=== PATIENT | male | born 1950 | race Caucasian/White ===

== ENCOUNTER 2019-01-07 22:10 | Emergency (ER) | payer MEDICARE, OTHER ==
[2019-01-07 22:40] LABS: BASOPHILS # (AUTO) 0.1 10^3/uL (0.0-0.1); BASOPHILS % (AUTO) 0.5 %; HGB - HEMOGLOBIN 16.5 g/dL (14.0-18.0); LYMPHOCYTES # (AUTO) 1.4 10^3/uL (1.5-3.5); LYMPHOCYTES % (AUTO) 9.1 %; MEAN CORPUSCULAR HGB CONC 33.6 g/dL (32.0-36.0); MEAN CORPUSCULAR VOLUME 86.5 fL (80.0-94.0); MEAN PLATELET VOLUME 9.3 fL (7.4-11.4); MONOCYTES # (AUTO) 1.1 10^3/uL (0.0-1.0); MONOCYTES % (AUTO) 6.9 %; NEUTROPHILS % (AUTO) 83.5 %; PLT - PLATELET COUNT 293 10^3/uL (130-450); RED BLOOD COUNT 5.69 10^6/uL (4.70-6.10); RED CELL DISTRIBUTION WIDTH 13.5 % (12.0-15.0); WHITE BLOOD COUNT 15.6 x10^3/uL (4.8-10.8)
[2019-01-07 22:52] LABS: ALBUMIN/GLOBULIN RATIO 1.5 (1.0-2.2); BILIRUBIN,TOTAL 2.2 mg/dL (0.2-1.0); CALCIUM 10.1 mg/dL (8.5-10.3); TOTAL PROTEIN 8.3 g/dL (6.7-8.2)
--- NOTE | 2019-01-07 23:38 | ED Physician Documentation ---
PD HPI ABD PAIN - Stated complaint Stated Complaint: CONSTIPATION, MALE - Chief complaint Chief Complaint: Abd Pain - History obtained from History obtained from: Patient, Family - History of Present Illness Timing - onset: Today, Yesterday Timing - duration: Days (2) Timing - details: Gradual onset Quality: Sharp, Stabbing, Throbbing, Other (Spasms) Location: All over / everywhere, Suprapubic Radiation: No: Chest Associated symptoms: Constipation. 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 He is here with his daughter with complaints that he cannot urinate. Since yesterday he is only been getting small dribbles of urine and he feels desperately like he needs to urinate. He also cannot have a bowel movement. He denies any history of prostate disease although his brother of prostate cancer. Patient has had no fever, he does not feel short of breath has had no peripheral edema. No history of kidney disease or diabetes. He has not been unable to look at the urine to see if there is blood. Review of Systems Constitutional: denies: Fever Throat: denies: Sore throat Respiratory: denies: Dyspnea GI: reports: Constipation : reports: Unable to Void PD PAST MEDICAL HISTORY - Allergies Allergies/Adverse Reactions: Allergies Allergy/AdvReac Type Severity Reaction Status Date / Time No Known Drug Allergies Allergy Verified 01/07/19 22:22 PD ED PE NORMAL - Vitals Vital signs reviewed: Yes (Patient is blind.) - General General: Alert and oriented X 3, No acute distress, Well developed/nourished - HEENT HEENT: Atraumatic, Moist mucous membranes - Cardiac Cardiac: RRR, No murmur - Respiratory Respiratory: No respiratory distress, Clear bilaterally - Abdomen Abdomen: Normal bowel sounds, Other (The abdomen is tender and tense fullness felt in the suprapubic region consistent with an enlarged bladder.) - Neuro Neuro: Alert and oriented X 3, No motor deficit, No sensory deficit, Normal speech - Psych Psych: Normal mood, Normal affect Results - Vitals Vitals: Vital Signs - 24 hr 01/07/19 01/08/19 01/08/19 22:15 00:22 02:03 Temperature 36.7 C Heart Rate 130 H 110 H 99 Respiratory 17 18 17 Rate Blood Pressure 196/97 H 152/80 H 155/87 H O2 Saturation 96 93 94 Oxygen O2 Source Room air - Labs Labs: Laboratory Tests 01/07/19 01/07/19 01/08/19 22:35 22:35 00:30 WBC 15.6 H RBC 5.69 Hgb 16.5 Hct 49.2 MCV 86.5 MCH 29.0 MCHC 33.6 RDW 13.5 Plt Count 293 MPV 9.3 Neut # (Auto) 13.0 H Lymph # (Auto) 1.4 L [place] # (Auto) 1.1 H Eos # (Auto) 0.0 Baso # (Auto) 0.1 Absolute Nucleated RBC 0.01 Nucleated RBC % 0.1 Sodium 140 Potassium 4.0 Chloride 103 Carbon Dioxide 22 Anion Gap 15.0 H BUN 16 Creatinine 1.0 Estimated GFR (MDRD) 74 L Glucose 140 H Calcium 10.1 Total Bilirubin 2.2 H AST 29 ALT 44 Alkaline Phosphatase 49 Total Protein 8.3 H Albumin 5.0 Globulin 3.3 Albumin/Globulin Ratio 1.5 Lipase 28 Urine Color YELLOW Urine Clarity CLEAR Urine pH 6.0 Ur Specific [place] 1.015 Urine Protein 100 H Urine Glucose (UA) NEGATIVE Urine Ketones NEGATIVE Urine Occult Blood LARGE H Urine Nitrite NEGATIVE Urine Bilirubin NEGATIVE Urine Urobilinogen 0.2 (NORMAL) Ur Leukocyte Esterase NEGATIVE Urine RBC TNTC H Urine WBC 0-3 Ur Squamous Epith Cells NONE SEEN Urine Bacteria None Seen Urine Mucus Few Strands Ur Microscopic Review INDICATED Urine Culture Comments NOT INDICATED PD MEDICAL DECISION MAKING - ED course Complexity details: re-evaluated patient, d/w patient, d/w family ED course: The patient had a Steele catheter placed the urine was initially clear and then a little bit bloody. Minimal white blood cells on microscopic. His kidney function is good normal CBC.Discussed with the family and they feel like they will be able to manage a Steele leg bag at home so he is discharged with a Steele leg bag with instructions to keep it empty and follow-up with his primary care provider about removal or referral to urology. Departure - Departure Disposition: 01 Home, Self Care Clinical Impression: Acute urinary retention Condition: Good Instructions: ED Catheter Care Steele Follow-Up: [facility] [Provider Group] Comments: Keep the leg bag emptied. If you start passing clots and then are not able to urinate you should be immediately if your primary care provider tomorrow about follow-up either with them at the clinic or whether they want you to have a referral for urologist. Discharge Date/Time: 01/08/19 02:13
[2019-01-08 00:38] LABS: BILIRUBIN,URINE NEGATIVE (NEGATIVE); CLARITY,URINE CLEAR (CLEAR); GLUCOSE, URINE (UA) NEGATIVE (NEGATIVE); KETONES,URINE (UA) NEGATIVE (NEGATIVE); LEUKOCYTE ESTERASE, URINE NEGATIVE (NEGATIVE); NITRITE,URINE NEGATIVE (NEGATIVE); OCCULT BLOOD,URINE LARGE (NEGATIVE); PROTEIN,URINE 100 mg/dL (NEGATIVE); UROBILINOGEN,URINE 0.2 (NORMAL) E.U./dL (NORMAL)
[2019-01-08 00:50] LABS: BACTERIA,URINE None Seen /HPF (None Seen); MUCUS,URINE Few Strands; RBC,URINE TNTC /HPF (0-5); SQUAMOUS EPITHELIAL CELL,UR NONE SEEN (<= Few)
[2019-01-08 02:04] VITALS: BP 155/87
== END 2019-01-08 02:13 | disposition home or self-care (01) ==
LOC: ED 22:10
DX: R33.9 Retention of urine, unspecified (principal); R31.0 Gross hematuria; H46.9 Unspecified optic neuritis; H54.7 Unspecified visual loss; Z80.42 Family history of malignant neoplasm of prostate
CPT/HCPCS: 36415; 51703; 51798; 80053; 81001; 81003; 83690; 85025; 87086; 99283

== ENCOUNTER 2019-01-17 17:35 | Inpatient (IN) | payer MEDICARE, OTHER ==
[2019-01-17] MEDS ORDERED: CEFEPIME 2 GM in SODIUM CHLORIDE 0.9% MINIBAG 100 ML IV STA (18:01)
[2019-01-17] MEDS ORDERED: LACTATED RINGERS IV STA (18:01)
[2019-01-17] MEDS ORDERED: ACETAMINOPHEN 325 MG TABLET PO STA (18:04)
--- NOTE | 2019-01-17 18:04 | ED Physician Documentation ---
History of Present Illness - Stated complaint Stated Complaint: UNABLE TO URINATE/CATH/FEVER - Chief complaint Chief Complaint: Fever - History obtained from History obtained from: Patient, Family (daughter) - History of Present Illness Timing: Today (68-year-old gentleman with history of blindness but otherwise pretty healthy. Had been having problems with hematuria lately and has had 2 catheters. On the second 1 he had a cystoscopy, per the daughter he had some friable blood vessels in the prostate that were cauterized and something was biopsied on the back of the bladder. During that he aspirated and ended up being intubated. This was 5 days ago and had a bronchoscopy. He was released from the hospital 2 days ago. Today around noon he is felt unusually cold and started having chills and a fever to 103 at home. He has a mild cough which is not worsening. He has some catheter pain but no bladder or flank pain. No abdominal pain.) Review of Systems Ten Systems: 10 systems reviewed and negative Constitutional: reports: Fever, Chills, Myalgias, Fatigue Cardiac: denies: Chest pain / pressure, Palpitations Respiratory: reports: Dyspnea, Cough GI: reports: Diarrhea (4 days ago, gone, now normal). denies: Abdominal Pain, Nausea, Vomiting PD PAST MEDICAL HISTORY - Past Medical History Past Medical History: Yes Other Past Medical History: blindness - Past Surgical History Past Surgical History: No - Allergies Allergies/Adverse Reactions: Allergies Allergy/AdvReac Type Severity Reaction Status Date / Time No Known Drug Allergies Allergy Verified 01/17/19 17:44 - Social History Does the pt smoke?: No Smoking Status: Never smoker Does the pt drink ETOH?: Yes Does the pt have substance abuse?: No - Family History Family history: reports: Non contributory - Immunizations Immunizations are current?: No Immunizations: TDAP >10years/unknown - POLST Patient has POLST: No PD ED PE NORMAL - Vitals Vital signs reviewed: Yes - General General: Alert and oriented X 3, No acute distress - HEENT HEENT: Other (R gaze, dilated pupils) - Neck Neck: Supple, no meningeal sign, No bony TTP - Cardiac Cardiac: Other (tachycardic, no mmr) - Respiratory Respiratory: No respiratory distress, Other (diminshed R base) - Abdomen Abdomen: Soft, Non tender - Male Male : Other (Leg bag with slightly orangey tinted urine but not opaque) - Derm Derm: Normal color, Warm and dry, No rash - Extremities Extremities: No edema, No calf tenderness / cord - Neuro Neuro: Alert and oriented X 3, Normal speech Results - Vitals Vitals: Vital Signs - 24 hr 01/17/19 01/17/19 01/17/19 17:40 18:35 19:00 Temperature 39.3 C H 37.9 C H Heart Rate 125 H 109 H 105 H Respiratory 18 28 H 31 H Rate Blood Pressure 142/60 H 141/73 H 147/69 H O2 Saturation 95 93 94 01/17/19 01/17/19 01/17/19 19:24 19:41 19:56 Temperature 37.2 C 37.2 C Heart Rate 99 Respiratory 40 H Rate Blood Pressure 148/74 H O2 Saturation 95 Oxygen O2 Source Room air - EKG (time done) 194 Rate: Rate (enter#) (105) Rhythm: Sinus tachycardia [place]: Normal Intervals: RBBB QRS: Normal Ischemia: Non specific changes Computer interpretation: Agree with computer - Labs Labs: Laboratory Tests 01/17/19 01/17/19 01/17/19 18:02 18:02 18:02 WBC 13.0 H RBC 4.36 L Hgb 12.8 L Hct 38.8 L MCV 89.0 MCH 29.4 MCHC 33.0 RDW 12.8 Plt Count 230 MPV 11.2 Neut # (Auto) 11.4 H Lymph # (Auto) 0.5 L [place] # (Auto) 1.0 Eos # (Auto) 0.0 Baso # (Auto) 0.0 Absolute Nucleated RBC 0.00 Nucleated RBC % 0.0 Sodium 135 Potassium 3.5 Chloride 101 Carbon Dioxide 23 Anion Gap 11.0 BUN 15 Creatinine 0.9 Estimated GFR (MDRD) 84 L Glucose 126 H Lactic Acid 1.4 Calcium 9.1 Total Bilirubin 1.7 H AST 24 ALT 30 Alkaline Phosphatase 43 Total Protein 7.4 Albumin 4.0 Globulin 3.4 Albumin/Globulin Ratio 1.2 Lipase 27 Urine Color Urine Clarity Urine pH Ur Specific [place] Urine Protein Urine Glucose (UA) Urine Ketones Urine Occult Blood Urine Nitrite Urine Bilirubin Urine Urobilinogen Ur Leukocyte Esterase Urine RBC Urine WBC Ur Squamous Epith Cells Urine Bacteria Ur Microscopic Review Urine Culture Comments 06/22/19 18:40 WBC RBC Hgb Hct MCV MCH MCHC RDW Plt Count MPV Neut # (Auto) Lymph # (Auto) [place] # (Auto) Eos # (Auto) Baso # (Auto) Absolute Nucleated RBC Nucleated RBC % Sodium Potassium Chloride Carbon Dioxide Anion Gap BUN Creatinine Estimated GFR (MDRD) Glucose Lactic Acid Calcium Total Bilirubin AST ALT Alkaline Phosphatase Total Protein Albumin Globulin Albumin/Globulin Ratio Lipase Urine Color YELLOW Urine Clarity HAZY Urine pH 7.0 Ur Specific [place] <=1.005 Urine Protein NEGATIVE Urine Glucose (UA) NEGATIVE Urine Ketones NEGATIVE Urine Occult Blood MODERATE H Urine Nitrite POSITIVE H Urine Bilirubin NEGATIVE Urine Urobilinogen 0.2 (NORMAL) Ur Leukocyte Esterase MODERATE H Urine RBC 6-10 H Urine WBC 11-25 H Ur Squamous Epith Cells NONE SEEN Urine Bacteria Moderate H Ur Microscopic Review INDICATED Urine Culture Comments INDICATED PD MEDICAL DECISION MAKING - ED course ED course: 68-year-old gentleman Presents with shaking chills and fever. Source is found to be urine with indwelling catheter. Note made that he also had a recent aspiration episode but chest x-ray is clear. Lactate is reassuring, white count is modestly elevated. He is pretty tachypneic, usually in the 30s on my exam with tachycardia, as such the concern for sepsis is high. He was covered for cefepime and I spoke with Dr. Da Silva (?sp), the urologist on-call for his at [facility] who felt there was no need for transfer given the lack of need for intervention per se, he just needs cultures followed and antibiotics. Departure - Departure Disposition: [facility] DC/Xfer Clinical Impression: Septicemia UTI (urinary tract infection) Qualifiers: Urinary tract infection type: catheter-associated UTI Indwelling urinary catheter type: indwelling urethral catheter Encounter type: initial encounter Qualified Code(s): T83.511A - Infection and inflammatory reaction due to indwelling urethral catheter, initial encounter Condition: Serious
[2019-01-17 18:18] LABS: BASOPHILS % (AUTO) 0.2 %; EOSINOPHILS % (AUTO) 0.1 %; HGB - HEMOGLOBIN 12.8 g/dL (14.0-18.0); LYMPHOCYTES # (AUTO) 0.5 10^3/uL (1.5-3.5); LYMPHOCYTES % (AUTO) 3.8 %; MEAN CORPUSCULAR HEMOGLOBIN 29.4 pg (27.0-31.0); MEAN PLATELET VOLUME 11.2 fL (7.4-11.4); MONOCYTES % (AUTO) 7.6 %; NEUTROPHILS # (AUTO) 11.4 10^3/uL (1.5-6.6); NEUTROPHILS % (AUTO) 87.9 %; PLT - PLATELET COUNT 230 10^3/uL (130-450); RED BLOOD COUNT 4.36 10^6/uL (4.70-6.10); RED CELL DISTRIBUTION WIDTH 12.8 % (12.0-15.0)
[2019-01-17 18:25] LABS: ALBUMIN/GLOBULIN RATIO 1.2 (1.0-2.2); BILIRUBIN,TOTAL 1.7 mg/dL (0.2-1.0); CREATININE 0.9 mg/dL (0.6-1.2); TOTAL PROTEIN 7.4 g/dL (6.7-8.2)
[2019-01-17 18:36] LABS: CALCIUM 9.1 mg/dL (8.5-10.3)
--- NOTE | 2019-01-17 18:43 | XRAY Report ---
Reason: cough fever Procedure Date: 01/17/2019 Accession Number: [id number] / [id number] Procedure: XR - Chest 1 View X-Ray CPT Code: 25648 FULL RESULT: EXAM: CHEST RADIOGRAPHY EXAM DATE: 01/17/2019 06:19 PM. CLINICAL HISTORY: Cough and fever COMPARISON: XR CHEST 1 VIEW AP/PA 01/12/2019 9:[address] IVP SPLIT BOLUS (ADULT) 01/14/2019 3:02 PM. TECHNIQUE: 1 view. FINDINGS: Lungs/Pleura: Slightly low lung volumes. No focal opacities are evident. No pleural effusion or pneumothorax. Mediastinum: Within exam limitations, the cardiomediastinal contour is normal. Other: The bones are unremarkable. IMPRESSION: No acute cardiopulmonary abnormality. RADIA
[2019-01-17 18:47] LABS: BILIRUBIN,URINE NEGATIVE (NEGATIVE); GLUCOSE, URINE (UA) NEGATIVE (NEGATIVE); KETONES,URINE (UA) NEGATIVE (NEGATIVE); LEUKOCYTE ESTERASE, URINE MODERATE (NEGATIVE); NITRITE,URINE POSITIVE (NEGATIVE); OCCULT BLOOD,URINE MODERATE (NEGATIVE); PROTEIN,URINE NEGATIVE (NEGATIVE); UROBILINOGEN,URINE 0.2 (NORMAL) E.U./dL (NORMAL)
[2019-01-17 18:53] LABS: CLARITY,URINE HAZY (CLEAR)
[2019-01-17 19:05] LABS: BACTERIA,URINE Moderate /HPF (None Seen); SQUAMOUS EPITHELIAL CELL,UR NONE SEEN (<= Few)
[2019-01-17] MEDS ORDERED: CALCIUM CARBONATE CHEW 500 MG TABLET PO STA (19:38)
[2019-01-17] MEDS ORDERED: ONDANSETRON 4 MG/2 ML VIAL IVP PRN (19:50)
[2019-01-17] MEDS ORDERED: ACETAMINOPHEN 325 MG TABLET PO PRN (19:50)
[2019-01-17] MEDS ORDERED: SODIUM CHLORIDE FLUSH 0.9% 10 ML SYRINGE IVP PRN (19:50)
[2019-01-17] MEDS ORDERED: SODIUM CHLORIDE 0.9% 1,000 ML IV SCH (20:00)
[2019-01-17] MEDS ORDERED: IBUPROFEN 800 MG TABLET PO STA (20:10)
[2019-01-17] MEDS ORDERED: VANCOMYCIN PER PHARMACY 100 GM in SODIUM CHLORIDE 0.9% 250 ML IV SCH (21:00)
--- NOTE | 2019-01-17 21:41 | HISTORY & PHYSICAL EXAMINATION ---
Chief Complaint - Chief Complaint Chief Complaint: fever, shivering History of Present Illness - Admitted From Admitted From:: [facility] ED - History Obtained From Records Reviewed: yes History obtained from: patient and daughter - History of Present Illness HPI Comment/Other: Patient was seen on 01/17/19 at 21:30pm. Patient is a 68 y/o male who presented to the ED with complain of a fever. He had a temp of 103F at home. Temp was confirmed to be 39.3C in the ED. At the time he had a heart rate of 125. He was tachypneic with shallow breath sounds. He was discharged from [facility] 2 days ago. He had a 4-day stay there. He was seen there for a cystoscopy. He had biopsy of the posterior bladder wall taken at the time with caudery done to some blood vessels in the prostate. In the cause of initiation of the procedure, he aspirated. He was intubated, bronched and the cystoscopy completed. He used to be on flomax but he took himself off flomax 5 years ago. At bedside he was diaphoretic, tachypneic with respiratory rate of 46, tachycardic with pulse of 117 and febrile. As a result he was admitted to the ICU. Upon reevaluation in the ED a couple hours later, he had markedly improve and was eating. His respiratory rate was 18 and he was afebrile. He denied chest pain, JOSE A, abdominal pain, nausea or vomiting. 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 He has a es[place] cath in place since 01/08/19. It was placed during an ED visit to [facility] for urinary retention. He has a history of urinary frequency. 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 Brother: at 61 from complications of prostate cance, Valvular disease. Mother: from CVA. father: from lung cancer. Smoked heavily Living arrangement: At home Living Situation: With family Social History Notes: Lives with daughter and family. Is very familiar with the house so does not use his cane in the house. Daughter takes him to his appointments. Is independent of activities of daily living. Has been blind for 5 years now / AION. He denies tobacco, alcohol or illicit drug use - POLST Patient has POLST: No POLST Status: Full Code Meds/Allgy - Allergies Allergies/Adverse Reactions: Allergies Allergy/AdvReac Type Severity Reaction Status Date / Time No Known Drug Allergies Allergy Verified 01/17/19 17:44 Review of Systems - Constitutional Constitutional: reports: Fever, Chills, Diaphoresis - Eyes Eyes: reports: Other (Blind) - Ears, Nose & Throat Ears, Nose & Throat: denies: Ear pain, Nasal pain, Sore throat - Cardiovascular Cariovascular: reports: Palpitations. denies: Chest pain, Edema, Exertional dyspnea - Respiratory Respiratory: denies: Cough, Sputum production, Wheezing, SOB at rest, SOB with exertion - Gastrointestinal Gastrointestinal: reports: Reflux/heartburn. denies: Abdominal pain, Abdominal distention, Constipation, Diarrhea, Black stools, Nausea, Vomiting, Coffee grounds emesis - Genitourinary Genitourinary: reports: Frequency, Hematuria, Other (espa[place] catheter in place). denies: Flank pain - Musculoskeletal Musculoskeletal: denies: Muscle pain, Back pain, Muscle aches, Stiffness, Gout, Joint pain - Integumentary Integumentary: denies: Rash, Pruritis, Lesions - Neurological Neurological: denies: General weakness, Headache, Dizziness - Psychiatric Psychiatric: denies: Depression, Anxiety - Endocrine Endocrine: denies: Polyuria, Polydypsia - Hematologic/Lymphatic Hematologic/Lymphatic: denies: Anemia, Bruising, Petechiae Prior Level of Functionality: Lives with daughter and family. Is very familiar with the house so does not use his cane in the house. Daughter takes him to his appointments. Is independent of activities of daily living. Has been blind for 5 years now 2/2 AION. He denies tobacco, alcohol or illicit drug use Exam - Vital Signs Vital Signs: Vital Signs x48h Temp Pulse Resp BP Pulse Ox 01/17/19 21:00 39.4 C H 120 H 30 H 175/77 H 96 01/17/19 20:11 38.9 C H 117 H 38 H 165/83 H 98 01/17/19 19:56 37.2 C 01/17/19 19:41 99 40 H 148/74 H 95 01/17/19 19:24 37.2 C 01/17/19 19:00 105 H 31 H 147/69 H 94 01/17/19 18:35 37.9 C H 109 H 28 H 141/73 H 93 01/17/19 17:40 39.3 C H 125 H 18 142/60 H 95 - Physical Exam General Appearance: positive: Alert, Moderate distress Eyes Bilateral: positive: Other (Patient is blind) ENT: positive: ENT inspection nml, Pharynx nml Neck: positive: Nml inspection, No JVD, Trachea midline Respiratory: positive: Chest non-tender, No respiratory distress, Breath sounds nml. negative: Wheezes, Rales, Rhonchi Cardiovascular: positive: No murmur, Tachycardia Abdomen: positive: Non-tender, No organomegaly, Nml bowel sounds, No distention. negative: Guarding, Rebound Back: negative: Nml inspection Skin: positive: Color nml, Diaphoresis. negative: No rash, Warm Extremities: positive: Non-tender, Full ROM, Nml appearance, No pedal edema Neurologic/Psychiatric: positive: Oriented x3, Mood/affect nml Sepsis Event Note (H) - Evaluation Current Stage of Sepsis: Sepsis Possible source of Sepsis: positive: Genitourinary - Sepsis Criteria Sepsis Criteria: Recorded Temperature greater than 38.3C or Less than 36C, Recorded Heart Rate greater than 90 bpm, Recorded Respiratory Rate greater than 20, WBC count greater than 12,000 or less than 4000 Conclusion/Plan - Problem List (1) Sepsis Conclusion/Plan: 2/2 UTI Recently had a cyctoscopy with biopsy of posterior bladder wall and Cautery of blood vessels in prostate. Patient started on vancomycin and cefepime. Blood and urine cultures pending IV hydration with Normal Saline Tylenol for fever. (2) Acute urinary retention Conclusion/Plan: Likely 2/2 BPH [place] catheter in place Patient follows up with urology (3) BPH (benign prostatic hyperplasia) Conclusion/Plan: On tamsulosin - Lab Results Fish Bones: 01/17/19 18:02 01/17/19 18:02 Core Measures - Anticipated LOS I expect patient to be DC'd or transferred within 96 hours.: Yes - DVT/VTE - Prophylaxis VTE/DVT Device ordered at admit?: Yes
[2019-01-17] MEDS ORDERED: VANCOMYCIN INJ 1 GM in SODIUM CHLORIDE 0.9% 250 ML IV SCH (22:00)
[2019-01-17] MEDS: SODIUM CHLORIDE 0.9% 1,000 ML IV SCH (22:18)
[2019-01-17] MEDS: traZODone 50 MG TABLET PO SCH (23:48)
[2019-01-18] MEDS: CEFEPIME 2 GM in SODIUM CHLORIDE 0.9% MINIBAG 100 ML IV SCH ×3 (01:45→17:42)
[2019-01-18 05:45] LABS: BASOPHILS % (AUTO) 0.2 %; EOSINOPHILS % (AUTO) 0.2 %; HGB - HEMOGLOBIN 11.4 g/dL (14.0-18.0); LYMPHOCYTES # (AUTO) 0.6 10^3/uL (1.5-3.5); LYMPHOCYTES % (AUTO) 4.7 %; MEAN CORPUSCULAR HEMOGLOBIN 28.5 pg (27.0-31.0); MEAN CORPUSCULAR HGB CONC 31.5 g/dL (32.0-36.0); MEAN CORPUSCULAR VOLUME 90.5 fL (80.0-94.0); MEAN PLATELET VOLUME 11.2 fL (7.4-11.4); MONOCYTES # (AUTO) 0.9 10^3/uL (0.0-1.0); MONOCYTES % (AUTO) 7.1 %; NEUTROPHILS # (AUTO) 10.8 10^3/uL (1.5-6.6); NEUTROPHILS % (AUTO) 86.8 %; PLT - PLATELET COUNT 186 10^3/uL (130-450); RED CELL DISTRIBUTION WIDTH 12.6 % (12.0-15.0); WHITE BLOOD COUNT 12.4 x10^3/uL (4.8-10.8)
[2019-01-18 05:53] LABS: CALCIUM 8.6 mg/dL (8.5-10.3); CREATININE 0.8 mg/dL (0.6-1.2)
[2019-01-18] MEDS ORDERED: CEFEPIME 2 GM in SODIUM CHLORIDE 0.9% MINIBAG 100 ML IV SCH (06:00)
[2019-01-18] MEDS: SODIUM CHLORIDE FLUSH 0.9% 10 ML SYRINGE IVP SCH ×4 (06:36→23:41)
[2019-01-18] MEDS: SODIUM CHLORIDE 0.9% 1,000 ML IV SCH ×2 (06:36→16:32)
[2019-01-18] MEDS: POLYETHYLENE GLYCOL 3350 17 GM PACKET PO SCH (09:21)
[2019-01-18] MEDS: VANCOMYCIN INJ 1 GM in SODIUM CHLORIDE 0.9% 250 ML IV SCH ×2 (11:15→21:43)
--- NOTE | 2019-01-18 17:34 | PROVIDER PROGRESS NOTE ---
Subjective - Prog Note Date Prog Note Date: 01/18/19 Prog Note Time: 17:31 - Subjective Pt reports feeling: Improved Subjective: he has been visited by his kaughter, Kimmy. She had a few questions about his condition and she was updated. He continues to feel much improved from his status on admission. No further rigors which were so severe he muscles ached from the contractions. He has an appetite and ate breakfast and lunch. Current Medications - Current Medications Current Medications: Active Medications Acetaminophen (Tylenol) 650 mg PO Q4HR PRN PRN Reason: Pain 1 to 4 Guaifenesin (Robitussin Liquid) 100 mg PO Q6HR PRN PRN Reason: Cough Cefepime HCl 2 gm/ Sodium (Chloride) 100 mls @ 200 mls/hr IV Q8H [facility] Last Infusion: 01/18/19 10:55 Dose: Infused Sodium Chloride (Normal Saline 0.9%) 1,000 mls @ 125 mls/hr IV .Q8H [facility] Last Admin: 01/18/19 16:32 Dose: 125 mls/hr Vancomycin HCl 1 gm/ Sodium (Chloride) 250 mls @ 167 mls/hr IV Q12H [facility] Last Infusion: 01/18/19 12:45 Dose: Infused Ondansetron HCl (Zofran Inj) 4 mg IVP Q6HR PRN PRN Reason: Nausea / Vomiting Polyethylene Glycol (Miralax) 17 gm PO DAILY [facility] Last Admin: 01/18/19 09:21 Dose: Not Given Sodium Chloride (Normal Saline Flush 0.9%) 10 ml IVP PRN PRN PRN Reason: NEEDED PER PROVIDER ORDERS Sodium Chloride (Normal Saline Flush 0.9%) 10 ml IVP 0100,0900,1700 [facility] Last Admin: 01/18/19 16:32 Dose: Not Given Trazodone HCl (Desyrel) 50 mg PO QPM [facility] Last Admin: 01/17/19 23:48 Dose: 50 mg No Known Home Medications 01/18/19 Objective - Vital Signs/Intake & Output Reviewed Vital Signs: Yes Vital Signs: Vital Signs x48h Temp Pulse Resp BP Pulse Ox 01/18/19 16:28 36.7 C 91 16 101/72 99 01/18/19 12:00 85 26 H 144/72 H 97 01/18/19 11:00 84 24 124/59 L 94 01/18/19 10:00 93 30 H 120/63 96 Intake & Output: Intake & Output 01/15/19 01/16/19 01/17/19 01/18/19 23:59 23:59 23:59 23:59 Intake Total 2595.29 3400.000 Output Total 2050 1850 Balance 545.29 1550.000 - Objective General Appearance: positive: No acute distress, Alert Eyes Bilateral: positive: PERRL ENT: positive: Pharynx nml, Other (blind) Neck: positive: No JVD. negative: Stiff neck Respiratory: positive: Chest non-tender. negative: Wheezes, Rales, Rhonchi Cardiovascular: positive: Regular rate & rhythm. negative: Gallop/S4, Friction rub Abdomen: positive: Non-tender, No organomegaly, Nml bowel sounds, No distention Skin: positive: Warm, Dry Extremities: positive: Non-tender, Full ROM Neurologic/Psychiatric: positive: Oriented x3, CN's nml (2-12) (except blind), Motor nml - Lab Results Fish Bones: 01/18/19 05:23 01/18/19 05:23 Other Labs: Lab Results x24hrs 01/18/19 01/18/19 01/17/19 Range/Units 05:23 05:23 22:35 WBC 12.4 H (4.8-10.8) x10^3/uL RBC 4.00 L (4.70-6.10) 10^6/uL Hgb 11.4 L (14.0-18.0) g/dL Hct 36.2 L (42.0-52.0) % MCV 90.5 (80.0-94.0) fL MCH 28.5 (27.0-31.0) pg MCHC 31.5 L (32.0-36.0) g/dL RDW 12.6 (12.0-15.0) % Plt Count 186 (130-450) 10^3/uL MPV 11.2 (7.4-11.4) fL Neut # (Auto) 10.8 H (1.5-6.6) 10^3/uL Lymph # (Auto) 0.6 L (1.5-3.5) 10^3/uL [place] # (Auto) 0.9 (0.0-1.0) 10^3/uL Eos # (Auto) 0.0 (0.0-0.7) 10^3/uL Baso # (Auto) 0.0 (0.0-0.1) 10^3/uL Absolute Nucleated RBC 0.00 x10^3/uL Nucleated RBC % 0.0 /100WBC Sodium 140 (135-145) mmol/L Potassium 3.5 (3.5-5.0) mmol/L Chloride 108 (101-111) mmol/L Carbon Dioxide 22 (21-32) mmol/L Anion Gap 10.0 (6-13) BUN 11 (6-20) mg/dL Creatinine 0.8 (0.6-1.2) mg/dL Estimated GFR (MDRD) 96 (>89) Glucose 136 H (70-100) mg/dL Lactic Acid (0.5-2.2) mmol/L Calcium 8.6 (8.5-10.3) mg/dL Total Bilirubin (0.2-1.0) mg/dL AST (10-42) IU/L ALT (10-60) IU/L Alkaline Phosphatase (42-121) IU/L Total Protein (6.7-8.2) g/dL Albumin (3.2-5.5) g/dL Globulin (2.1-4.2) g/dL Albumin/Globulin Ratio (1.0-2.2) Lipase (22-51) U/L Urine Color Urine Clarity (CLEAR) Urine pH (5.0-7.5) PH Ur Specific [place] (1.002-1.030) Urine Protein (NEGATIVE) mg/dL Urine Glucose (UA) (NEGATIVE) mg/dL Urine Ketones (NEGATIVE) mg/dL Urine Occult Blood (NEGATIVE) Urine Nitrite (NEGATIVE) Urine Bilirubin (NEGATIVE) Urine Urobilinogen (NORMAL) E.U./dL Ur Leukocyte Esterase (NEGATIVE) Urine RBC (0-5) /HPF Urine WBC (0-3) /HPF Ur Squamous Epith Cells (<= Few) Urine Bacteria (None Seen) /HPF Ur Microscopic Review Urine Culture Comments Nasal Screen MRSA (PCR) NEGATIVE (NEGATIVE) 01/17/19 01/17/19 01/17/19 Range/Units 18:40 18:02 18:02 WBC (4.8-10.8) x10^3/uL RBC (4.70-6.10) 10^6/uL Hgb (14.0-18.0) g/dL Hct (42.0-52.0) % MCV (80.0-94.0) fL MCH (27.0-31.0) pg MCHC (32.0-36.0) g/dL RDW (12.0-15.0) % Plt Count (130-450) 10^3/uL MPV (7.4-11.4) fL Neut # (Auto) (1.5-6.6) 10^3/uL Lymph # (Auto) (1.5-3.5) 10^3/uL [place] # (Auto) (0.0-1.0) 10^3/uL Eos # (Auto) (0.0-0.7) 10^3/uL Baso # (Auto) (0.0-0.1) 10^3/uL Absolute Nucleated RBC x10^3/uL Nucleated RBC % /100WBC Sodium 135 (135-145) mmol/L Potassium 3.5 (3.5-5.0) mmol/L Chloride 101 (101-111) mmol/L Carbon Dioxide 23 (21-32) mmol/L Anion Gap 11.0 (6-13) BUN 15 (6-20) mg/dL Creatinine 0.9 (0.6-1.2) mg/dL Estimated GFR (MDRD) 84 L (>89) Glucose 126 H (70-100) mg/dL Lactic Acid 1.4 (0.5-2.2) mmol/L Calcium 9.1 (8.5-10.3) mg/dL Total Bilirubin 1.7 H (0.2-1.0) mg/dL AST 24 (10-42) IU/L ALT 30 (10-60) IU/L Alkaline Phosphatase 43 (42-121) IU/L Total Protein 7.4 (6.7-8.2) g/dL Albumin 4.0 (3.2-5.5) g/dL Globulin 3.4 (2.1-4.2) g/dL Albumin/Globulin Ratio 1.2 (1.0-2.2) Lipase 27 (22-51) U/L Urine Color YELLOW Urine Clarity HAZY (CLEAR) Urine pH 7.0 (5.0-7.5) PH Ur Specific [place] <=1.005 (1.002-1.030) Urine Protein NEGATIVE (NEGATIVE) mg/dL Urine Glucose (UA) NEGATIVE (NEGATIVE) mg/dL Urine Ketones NEGATIVE (NEGATIVE) mg/dL Urine Occult Blood MODERATE H (NEGATIVE) Urine Nitrite POSITIVE H (NEGATIVE) Urine Bilirubin NEGATIVE (NEGATIVE) Urine Urobilinogen 0.2 (NORMAL) (NORMAL) E.U./dL Ur Leukocyte Esterase MODERATE H (NEGATIVE) Urine RBC 6-10 H (0-5) /HPF Urine WBC 11-25 H (0-3) /HPF Ur Squamous Epith Cells NONE SEEN (<= Few) Urine Bacteria Moderate H (None Seen) /HPF Ur Microscopic Review INDICATED Urine Culture Comments INDICATED Nasal Screen MRSA (PCR) (NEGATIVE) 01/17/19 Range/Units 18:02 WBC 13.0 H (4.8-10.8) x10^3/uL RBC 4.36 L (4.70-6.10) 10^6/uL Hgb 12.8 L (14.0-18.0) g/dL Hct 38.8 L (42.0-52.0) % MCV 89.0 (80.0-94.0) fL MCH 29.4 (27.0-31.0) pg MCHC 33.0 (32.0-36.0) g/dL RDW 12.8 (12.0-15.0) % Plt Count 230 (130-450) 10^3/uL MPV 11.2 (7.4-11.4) fL Neut # (Auto) 11.4 H (1.5-6.6) 10^3/uL Lymph # (Auto) 0.5 L (1.5-3.5) 10^3/uL [place] # (Auto) 1.0 (0.0-1.0) 10^3/uL Eos # (Auto) 0.0 (0.0-0.7) 10^3/uL Baso # (Auto) 0.0 (0.0-0.1) 10^3/uL Absolute Nucleated RBC 0.00 x10^3/uL Nucleated RBC % 0.0 /100WBC Sodium (135-145) mmol/L Potassium (3.5-5.0) mmol/L Chloride (101-111) mmol/L Carbon Dioxide (21-32) mmol/L Anion Gap (6-13) BUN (6-20) mg/dL Creatinine (0.6-1.2) mg/dL Estimated GFR (MDRD) (>89) Glucose (70-100) mg/dL Lactic Acid (0.5-2.2) mmol/L Calcium (8.5-10.3) mg/dL Total Bilirubin (0.2-1.0) mg/dL AST (10-42) IU/L ALT (10-60) IU/L Alkaline Phosphatase (42-121) IU/L Total Protein (6.7-8.2) g/dL Albumin (3.2-5.5) g/dL Globulin (2.1-4.2) g/dL Albumin/Globulin Ratio (1.0-2.2) Lipase (22-51) U/L Urine Color Urine Clarity (CLEAR) Urine pH (5.0-7.5) PH Ur Specific [place] (1.002-1.030) Urine Protein (NEGATIVE) mg/dL Urine Glucose (UA) (NEGATIVE) mg/dL Urine Ketones (NEGATIVE) mg/dL Urine Occult Blood (NEGATIVE) Urine Nitrite (NEGATIVE) Urine Bilirubin (NEGATIVE) Urine Urobilinogen (NORMAL) E.U./dL Ur Leukocyte Esterase (NEGATIVE) Urine RBC (0-5) /HPF Urine WBC (0-3) /HPF Ur Squamous Epith Cells (<= Few) Urine Bacteria (None Seen) /HPF Ur Microscopic Review Urine Culture Comments Nasal Screen MRSA (PCR) (NEGATIVE) ABX Reporting Has patient been on IV antibiotics over the past 48 hours?: Yes Sepsis Event Note (H) - Evaluation Current Stage of Sepsis: Resolved Possible source of Sepsis: positive: Genitourinary - Sepsis Criteria Sepsis Criteria: Recorded Temperature greater than 38.3C or Less than 36C, Recorded Heart Rate greater than 90 bpm, Recorded Respiratory Rate greater than 20, WBC count greater than 12,000 or less than 4000 Assessment/Plan - Problem List (1) Sepsis Impression: from UTI with gram negative and gram positive bacteria on UA C&S. blood C&S are negative. Recently had a cyctoscopy with biopsy of posterior bladder wall and Cautery of blood vessels in prostate. CT report shared with daughter and patient. He has a mild right lower lobe centrilobular nodular opacity, no kidney stones or hydronephrosis. No kidney masses. Severely enlarged prostate. Severe atherosclerotic disease of aorta and branches. He has a right parasymphyseal sclerotic bone lesion and small fat-containing bilateral inguinal hernias. Patient started on vancomycin and cefepime. Blood and urine cultures final results still pending IV hydration with Normal Saline Tylenol for fever. (2) Acute urinary retention Conclusion/Plan: Likely 2/2 BPH Steele catheter in place Patient follows up with urology Check PSA in am If PSA is negative, start Proscar (3) BPH (benign prostatic hyperplasia) Conclusion/Plan: On tamsulosin Qualifiers: Sepsis type: sepsis due to unspecified organism Qualified Code(s): A41.9 - Sepsis, unspecified organism
[2019-01-18] MEDS ORDERED: OXYMETAZOLINE HCL 100 SPRAYS BOTTLE NAS ONE (17:38)
[2019-01-18] MEDS: guaiFENesin 100 MG/5 ML UDC PO PRN ×2 (17:42→23:37)
[2019-01-18] MEDS: traZODone 50 MG TABLET PO SCH (20:25)
[2019-01-18] MEDS ORDERED: CALCIUM CARBONATE CHEW 500 MG TABLET PO PRN (22:35)
[2019-01-19] MEDS: CEFEPIME 2 GM in SODIUM CHLORIDE 0.9% MINIBAG 100 ML IV SCH ×3 (01:52→17:58)
[2019-01-19] MEDS: SODIUM CHLORIDE 0.9% 1,000 ML IV SCH ×4 (02:57→23:29)
[2019-01-19 05:29] LABS: BASOPHILS % (AUTO) 0.1 %; EOSINOPHILS # (AUTO) 0.1 10^3/uL (0.0-0.7); EOSINOPHILS % (AUTO) 1.5 %; HGB - HEMOGLOBIN 10.2 g/dL (14.0-18.0); LYMPHOCYTES # (AUTO) 1.2 10^3/uL (1.5-3.5); MEAN CORPUSCULAR HEMOGLOBIN 29.5 pg (27.0-31.0); MEAN CORPUSCULAR HGB CONC 32.3 g/dL (32.0-36.0); MEAN CORPUSCULAR VOLUME 91.3 fL (80.0-94.0); MEAN PLATELET VOLUME 11.9 fL (7.4-11.4); MONOCYTES # (AUTO) 0.7 10^3/uL (0.0-1.0); MONOCYTES % (AUTO) 8.1 %; NEUTROPHILS # (AUTO) 6.1 10^3/uL (1.5-6.6); NEUTROPHILS % (AUTO) 74.6 %; PLT - PLATELET COUNT 149 10^3/uL (130-450); RED BLOOD COUNT 3.46 10^6/uL (4.70-6.10); RED CELL DISTRIBUTION WIDTH 13.2 % (12.0-15.0); WHITE BLOOD COUNT 8.2 x10^3/uL (4.8-10.8)
[2019-01-19 05:34] LABS: CALCIUM 8.4 mg/dL (8.5-10.3); CREATININE 0.8 mg/dL (0.6-1.2)
[2019-01-19] MEDS: SODIUM CHLORIDE FLUSH 0.9% 10 ML SYRINGE IVP SCH ×2 (08:17→17:59)
[2019-01-19] MEDS: POLYETHYLENE GLYCOL 3350 17 GM PACKET PO SCH (08:17)
[2019-01-19 09:32] LABS: VANCOMYCIN,TROUGH 8.1 ug/mL (10.0-20.0)
[2019-01-19 10:11] LABS: PSA FREE 3.48 ng/mL (0.16-2.81)
[2019-01-19 10:12] LABS: PSA TOTAL 29.11 ng/mL (0.000-2.000)
[2019-01-19] MEDS: VANCOMYCIN INJ 1 GM in SODIUM CHLORIDE 0.9% 250 ML IV SCH ×2 (10:18→21:24)
--- NOTE | 2019-01-19 13:40 | PROVIDER PROGRESS NOTE ---
Subjective - Prog Note Date Prog Note Date: 01/19/19 Prog Note Time: 13:40 - Subjective Pt reports feeling: Improved Current Medications - Current Medications Current Medications: Active Medications Acetaminophen (Tylenol) 650 mg PO Q4HR PRN PRN Reason: Pain 1 to 4 Calcium Carbonate/Glycine (Tums) 500 mg PO TID PRN PRN Reason: Heartburn Last Admin: 01/18/19 23:37 Dose: 500 mg Guaifenesin (Robitussin Liquid) 100 mg PO Q6HR PRN PRN Reason: Cough Last Admin: 01/18/19 23:37 Dose: 100 mg Cefepime HCl 2 gm/ Sodium (Chloride) 100 mls @ 200 mls/hr IV Q8H [facility] Last Infusion: 01/19/19 10:18 Dose: Infused Sodium Chloride (Normal Saline 0.9%) 1,000 mls @ 125 mls/hr IV .Q8H [facility] Last Admin: 01/19/19 13:26 Dose: 125 mls/hr Vancomycin HCl 1 gm/ Sodium (Chloride) 250 mls @ 167 mls/hr IV Q12H [facility] Last Infusion: 01/19/19 12:14 Dose: Infused Ondansetron HCl (Zofran Inj) 4 mg IVP Q6HR PRN PRN Reason: Nausea / Vomiting Polyethylene Glycol (Miralax) 17 gm PO DAILY [facility] Last Admin: 01/19/19 08:17 Dose: 17 gm Sodium Chloride (Normal Saline Flush 0.9%) 10 ml IVP PRN PRN PRN Reason: NEEDED PER PROVIDER ORDERS Sodium Chloride (Normal Saline Flush 0.9%) 10 ml IVP 0100,0900,1700 [facility] Last Admin: 01/19/19 08:17 Dose: 10 ml Trazodone HCl (Desyrel) 50 mg PO QPM [facility] Last Admin: 01/18/19 20:25 Dose: 50 mg No Known Home Medications 01/18/19 Objective - Vital Signs/Intake & Output Reviewed Vital Signs: Yes Vital Signs: Vital Signs x48h Temp Pulse Resp BP Pulse Ox 01/19/19 08:00 37.3 C 81 18 126/69 95 01/19/19 06:58 36.7 C Intake & Output: Intake & Output 01/16/19 01/17/19 01/18/19 01/19/19 23:59 23:59 23:59 23:59 Intake Total 2595.29 4347.917 2802.083 Output Total 2049 2625 500 Balance 545.29 5090.467 6482.083 - Objective General Appearance: positive: No acute distress, Alert Eyes Bilateral: positive: Other (blind) ENT: positive: Pharynx nml, No signs of dehydration Neck: positive: No JVD. negative: Stiff neck, Carotid bruit Respiratory: positive: Chest non-tender. negative: Wheezes, Rales, Rhonchi Cardiovascular: positive: Regular rate & rhythm. negative: Systolic murmur, Gallop/S4, Friction rub Abdomen: positive: Non-tender, No organomegaly, Nml bowel sounds, No distention Skin: positive: Warm, Dry Extremities: positive: Full ROM, No pedal edema Neurologic/Psychiatric: positive: Oriented x3, CN's nml (2-12) (except blind), Motor nml, Sensation nml - Lab Results Fish Bones: 01/19/19 04:46 01/19/19 04:46 Other Labs: Lab Results x24hrs 01/19/19 01/19/19 01/19/19 Range/Units 09:05 09:05 04:46 WBC (4.8-10.8) x10^3/uL RBC (4.70-6.10) 10^6/uL Hgb (14.0-18.0) g/dL Hct (42.0-52.0) % MCV (80.0-94.0) fL MCH (27.0-31.0) pg MCHC (32.0-36.0) g/dL RDW (12.0-15.0) % Plt Count (130-450) 10^3/uL MPV (7.4-11.4) fL Neut # (Auto) (1.5-6.6) 10^3/uL Lymph # (Auto) (1.5-3.5) 10^3/uL [place] # (Auto) (0.0-1.0) 10^3/uL Eos # (Auto) (0.0-0.7) 10^3/uL Baso # (Auto) (0.0-0.1) 10^3/uL Absolute Nucleated RBC x10^3/uL Nucleated RBC % /100WBC Sodium 138 (135-145) mmol/L Potassium 3.5 (3.5-5.0) mmol/L Chloride 110 (101-111) mmol/L Carbon Dioxide 20 L (21-32) mmol/L Anion Gap 8.0 (6-13) BUN 13 (6-20) mg/dL Creatinine 0.8 (0.6-1.2) mg/dL Estimated GFR (MDRD) 96 (>89) Glucose 123 H (70-100) mg/dL Calcium 8.4 L (8.5-10.3) mg/dL Prostate Specific [place] 29.110 H (0.000-2.000) ng/mL Free PSA 3.480 H (0.16-2.81) ng/mL % Free PSA Calc 12 L (25-100) % Last Dose Date UNK Last Dose Time UNK Vancomycin Trough 8.1 L (10.0-20.0) ug/mL 01/19/19 Range/Units 04:46 WBC 8.2 (4.8-10.8) x10^3/uL RBC 3.46 L (4.70-6.10) 10^6/uL Hgb 10.2 L (14.0-18.0) g/dL Hct 31.6 L (42.0-52.0) % MCV 91.3 (80.0-94.0) fL MCH 29.5 (27.0-31.0) pg MCHC 32.3 (32.0-36.0) g/dL RDW 13.2 (12.0-15.0) % Plt Count 149 (130-450) 10^3/uL MPV 11.9 H (7.4-11.4) fL Neut # (Auto) 6.1 (1.5-6.6) 10^3/uL Lymph # (Auto) 1.2 L (1.5-3.5) 10^3/uL [place] # (Auto) 0.7 (0.0-1.0) 10^3/uL Eos # (Auto) 0.1 (0.0-0.7) 10^3/uL Baso # (Auto) 0.0 (0.0-0.1) 10^3/uL Absolute Nucleated RBC 0.00 x10^3/uL Nucleated RBC % 0.0 /100WBC Sodium (135-145) mmol/L Potassium (3.5-5.0) mmol/L Chloride (101-111) mmol/L Carbon Dioxide (21-32) mmol/L Anion Gap (6-13) BUN (6-20) mg/dL Creatinine (0.6-1.2) mg/dL Estimated GFR (MDRD) (>89) Glucose (70-100) mg/dL Calcium (8.5-10.3) mg/dL Prostate Specific [place] (0.000-2.000) ng/mL Free PSA (0.16-2.81) ng/mL % Free PSA Calc (25-100) % Last Dose Date Last Dose Time Vancomycin Trough (10.0-20.0) ug/mL ABX Reporting Has patient been on IV antibiotics over the past 48 hours?: Yes Sepsis Event Note (H) - Evaluation Current Stage of Sepsis: Resolved Possible source of Sepsis: positive: Genitourinary - Sepsis Criteria Sepsis Criteria: Recorded Temperature greater than 38.3C or Less than 36C, Recorded Heart Rate greater than 90 bpm, Recorded Respiratory Rate greater than 20, WBC count greater than 12,000 or less than 4000 Assessment/Plan - Problem List (1) Sepsis Impression: from UTI with gram negative and gram positive bacteria on UA C&S. blood C&S are negative. Still no ID on bacteria yet. Resolved. Recently had a cyctoscopy with biopsy of posterior bladder wall and Cautery of blood vessels in prostate. CT report shared with daughter and patient. He has a mild right lower lung lobe centrilobular nodular opacity, no kidney stones or hydronephrosis. No kidney masses. Severely enlarged prostate. Severe atherosclerotic disease of aorta and branches. He has a right parasymphyseal sclerotic bone lesion and small fat-containing bilateral inguinal hernias. Patient started on vancomycin and cefepime. Day #3. Blood cultures are negative and urine cultures final results still pending. I will wait to change his treatment until his culture ID comes back. Hopefully he can be switched to po and sent home. IV hydration with Normal Saline can stop since he is eating and BP is now normal. Tylenol for fever. (2) Acute urinary retention Conclusion/Plan: Likely 2/2 BPH Steele catheter in place Patient follows up with urology Check PSA in am If PSA is negative, start Proscar (3) BPH (benign prostatic hyperplasia) Conclusion/Plan: On tamsulosin (4) Weakness He feels back to baseline but is so, so tired. Able to get to bathroom. Able to feed himself without assist.
[2019-01-19] MEDS: traZODone 50 MG TABLET PO SCH (21:22)
[2019-01-19] MEDS: guaiFENesin 100 MG/5 ML UDC PO PRN (22:05)
[2019-01-20] MEDS: BENZOCAINE/MENTHOL LOZENGE MM PRN ×2 (00:36→05:03)
[2019-01-20] MEDS: CEFEPIME 2 GM in SODIUM CHLORIDE 0.9% MINIBAG 100 ML IV SCH (01:38)
[2019-01-20] MEDS: SODIUM CHLORIDE FLUSH 0.9% 10 ML SYRINGE IVP SCH ×2 (05:06→07:59)
[2019-01-20 05:08] LABS: BASOPHILS % (AUTO) 0.4 %; EOSINOPHILS # (AUTO) 0.1 10^3/uL (0.0-0.7); EOSINOPHILS % (AUTO) 1.9 %; HGB - HEMOGLOBIN 10.7 g/dL (14.0-18.0); LYMPHOCYTES % (AUTO) 13.9 %; MEAN CORPUSCULAR HEMOGLOBIN 29.1 pg (27.0-31.0); MEAN CORPUSCULAR VOLUME 90.8 fL (80.0-94.0); MEAN PLATELET VOLUME 11.6 fL (7.4-11.4); MONOCYTES # (AUTO) 0.6 10^3/uL (0.0-1.0); MONOCYTES % (AUTO) 8.8 %; NEUTROPHILS # (AUTO) 5.1 10^3/uL (1.5-6.6); NEUTROPHILS % (AUTO) 74.4 %; PLT - PLATELET COUNT 172 10^3/uL (130-450); RED BLOOD COUNT 3.68 10^6/uL (4.70-6.10); RED CELL DISTRIBUTION WIDTH 12.8 % (12.0-15.0); WHITE BLOOD COUNT 6.9 x10^3/uL (4.8-10.8)
[2019-01-20 05:15] LABS: CALCIUM 8.4 mg/dL (8.5-10.3); CREATININE 0.7 mg/dL (0.6-1.2)
[2019-01-20] MEDS: SODIUM CHLORIDE 0.9% 1,000 ML IV SCH (07:55)
[2019-01-20] MEDS: POLYETHYLENE GLYCOL 3350 17 GM PACKET PO SCH (07:58)
[2019-01-20] MEDS ORDERED: VANCOMYCIN INJ 1 GM, VANCOMYCIN INJ 250 MG in SODIUM CHLORIDE 0.9% 250 ML IV SCH (09:00)
[2019-01-20] MEDS: CIPROFLOXACIN 250 MG TABLET PO SCH ×2 (09:54→18:17)
--- NOTE | 2019-01-20 11:10 | Discharge Plan ---
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 May have possible prostatitis Plan of Treatment: You have completed 4 days of IV antibiotic therapy. You will need to continue for 3 more weeks with oral ciprofloxacin. We will shrink your prostate using Proscar, and help your bladder empty with Flomax. Continue the [place] catheter. See Dr. Huang, Urology, 2 weeks from today after canceling your January 23 appointment. She will decide how long to continue antibiotics or whether you need to continue [place] catheter. Care Goals: To shrink your prostate that will allow you to urinate normally. To be reevaluated for possible risk of prostate cancer from an elevated PSA. Assessment: Patient is comfortable with [place] catheter. Will continue until sees urology. He and family understand plan. He will return if has recurrence of fever, chills, Reiger's. No Smoking: If you smoke, Please STOP! Call for help. Follow-up with: Lacey Broderick PA [Provider Admit Priv/Credential] - Jess Huang MD [Other]
[2019-01-20 18:20] VITALS: BP 147/61
--- NOTE | 2019-01-26 04:21 | DISCHARGE SUMMARY ---
Physician: Graciela Johnson MD DATE OF ADMISSION: 01/17/2019 DATE OF DISCHARGE: 01/20/2019 DISCHARGE DIAGNOSES 1. Sepsis. 2. Urinary tract infection with klebsiella and enterococcus. 3. Benign prostatic hypertrophy with lower urinary tract symptoms of obstruction and retention. 4. Generalized weakness. 5. Elevated PSA. DISCHARGE MEDICATIONS 1. Ciprofloxacin 500 b.i.d. for the next 21 days. 2. Proscar 5 mg p.o. daily. 3. Tamsulosin 0.4 mg p.o. daily. PRINCIPAL PROCEDURES 1. Chest x-ray without acute cardiopulmonary changes. 2. Blood cultures on January 17 negative. 3. Urinary culture positive for enterococcus and klebsiella. HOSPITAL COURSE: This is a gentleman who has a history of prostate disease. He was on Flomax 5 year s ago, but took himself off it. He does have a brother who of prostate cancer. He has become i ncreasingly symptomatic of prostatism with urgency, frequency, decreased stream, urinary retention. He went to go see a urologist, where he had a cystoscopy a week ago. He also had a biopsy of the pos terior bladder wall taken at that time. He had some cautery done. At the initiation of the procedur e, he aspirated and needed to be intubated, bronch'd, and cystoscope was completed. This was done at [facility], and he stayed there for 4 days. He was discharged 2 days ago and now returns to our [facility] room with diaphoresis, tachypnea, tachycardia, fever, chills and encephalopathy. His white cell count was elevated at 13,000. Temperature was 39.3, pulse was 125, blood pressure 142/60, respirati ons 18. Those increased to 28 and 31 over the next hour with his high fevers. He met the criteria o f sepsis and it was treated as the most likely source of urine on the basis of his urinalysis. The patient responded quite well and quite rapidly to IV fluids, IV antibiotics. Within a matter of a few hours, he was already stable. Lactic acid was not elevated at 1.4. He was afebrile within 24 hours and remained afebrile for the rest of his stay. White cell count came down to 6.9 by the time of discharge. Urinalysis grew out Klebsiella and enterococcus. He was switched over to oral antibio tics and tolerated that well. I explained to him that he needs to take a total of 21 days of antibio tics, maybe more because of his prostate. PSA was done and it is elevated at 29. Free PSA is 3.4, a nd percent free PSA calculation is 12. I explained to him that this PSA is not necessarily indicativ e of cancer, but may be indicative of simple inflammation, instrumentation, or an infected prostate w ith prostatitis. He was very anxious about a CT of the abdomen that was done while he was at the previous hospital. W sebastian obtained those results and shared his CT abdomen results, where there was no hydronephrosis. He payan s a sclerotic bone lesion in the pelvis that is not indicative of anything and just an incidental fin ding. We did contact his urologist to run his treatment plan past her. She was in agreement with the plan and offered no other suggestions. Patient was to be seen in followup by them in the next 2 weeks aft er discharge. We started him on Proscar, tamsulosin with her blessing. His Steele was changed while here and is to remain until she sees him. PHYSICAL EXAMINATION VITAL SIGNS: At discharge, temperature was 36.8, pulse was 82, blood pressure 147/61, respirations 2 0, and he is 95% on room air. GENERAL: He is a short-statured, stocky, Ethiopian male. NECK: Supple. No JVD or goiter. LUNGS: Clear to auscultation and percussion. PMI is normally placed with a regular rate and rhythm in a barrel chest. ABDOMEN: Soft, obese, protuberant, nontender with normal bowel sounds. EXTREMITIES: Without edema. NEUROLOGIC: He ambulates in his room without any assistance. He is eating his breakfast without ass istance. It should be noted that this patient is blind and needs quite a bit of assistance to at least put andrés d in front of him and to have him hold onto when he walks. Greater than 30 minutes was spent coordinating discharge. TD: 01/25/2019 21:15
== END 2019-01-20 18:50 | disposition home health service (06) | DRG 698 ==
LOC: ED 17:35 → MS2 19:50 → ICU 22:02 → MS2 01-18 13:59
PROVIDERS: ADMIT Internal Medicine; ATTEND Specialist
DX: T83.511A Infection and inflammatory reaction due to indwelling urethral catheter, initial encounter (principal); A41.9 Sepsis, unspecified organism; A41.81 Sepsis due to Enterococcus; A41.89 Other specified sepsis; R00.0 Tachycardia, unspecified; N13.8 Other obstructive and reflux uropathy; G93.40 Encephalopathy, unspecified; N39.0 Urinary tract infection, site not specified; N40.1 Benign prostatic hyperplasia with lower urinary tract symptoms; R33.8 Other retention of urine; R35.0 Frequency of micturition; R39.15 Urgency of urination; R31.9 Hematuria, unspecified; T44.6X Poisoning by, adverse effect of and underdosing of alpha-adrenoreceptor antagonists; R97.20 Elevated prostate specific antigen [PSA]; K21.9 Gastro-esophageal reflux disease without esophagitis; H47.013 Ischemic optic neuropathy, bilateral; H54.7 Unspecified visual loss; I70.0 Atherosclerosis of aorta
CPT/HCPCS: 36415; 71045; 80048; 80053; 80202; 81001; 83605; 83690; 84153; 84154; 85025; 87040; 87077; 87086; 87150; 87181; 93005; 96365; 99284; 99285; A9270; J3370; J7120; 81003

== ENCOUNTER 2019-01-21 21:36 | Emergency (ER) | payer MEDICARE, OTHER ==
--- NOTE | 2019-01-21 22:25 | ED Physician Documentation ---
PD HPI FEVER - Stated complaint Stated Complaint: FEVER - Chief complaint Chief Complaint: Fever - History obtained from History obtained from: Patient - History of Present Illness Timing - onset: Today Timing details: Abrupt onset Pain level max: 0 Pain level now: 0 Associated symptoms: Chills. No: Sore throat, Dry cough, Productive cough, Dyspnea, Abdominal pain, NVD, Urinary symptoms Recently seen: Admitted - Additional information Additional information: Discharged from [facility] yesterday after inpatient stay for possible sepsis. He returns due to fever, temperature of 101. He says he otherwise feels well. He has an indwelling [place] last changed one and a half weeks ago. He received Vanco and cefepime while inpatient and was discharged on Cipro. 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) - Present Medications Home Medications: Ambulatory Orders Medication Instructions Recorded Confirmed Ciprofloxacin [Cipro] 500 mg PO BID #42 tablet 01/20/19 Finasteride [Proscar] 5 mg PO DAILY #30 tablet 01/20/19 Tamsulosin HCl [Flomax] 0.4 mg PO QPM #30 cap.er.24h 01/20/19 - Allergies Allergies/Adverse Reactions: Allergies Allergy/AdvReac Type Severity Reaction Status Date / Time No Known Drug Allergies Allergy Verified 01/21/19 21:50 - Social History Does the pt smoke?: No Smoking Status: Never smoker Does the pt drink ETOH?: Yes Does the pt have substance abuse?: No - Immunizations Immunizations are current?: No Immunizations: TDAP >10years/unknown - POLST Patient has POLST: No POLST Status: Full Code PD ED PE NORMAL - Vitals Vital signs reviewed: Yes - General General: Alert and oriented X 3, No acute distress, Well developed/nourished - HEENT HEENT: PERRL, EOMI - Neck Neck: Supple, no meningeal sign - Cardiac Cardiac: RRR, No murmur - Respiratory Respiratory: No respiratory distress, Clear bilaterally - Abdomen Abdomen: Normal bowel sounds, Soft, Non tender, Non distended, Other (es[place] in place, clear yellow urine in legbag) - Derm Derm: Normal color, Warm and dry - Extremities Extremities: No edema Results - Vitals Vitals: Oxygen O2 Source Room air - Labs Labs: Microbiology 01/21/19 23:25 Urine Culture - Final Urine,Catheterized NO AEROBIC GROWTH AT 24 HOURS Laboratory Tests 01/21/19 01/21/19 01/21/19 22:59 22:59 22:59 WBC 6.3 RBC 3.81 L Hgb 11.0 L Hct 34.1 L MCV 89.5 MCH 28.9 MCHC 32.3 RDW 12.9 Plt Count 242 MPV 11.1 Neut # (Auto) 4.8 Lymph # (Auto) 0.7 L [place] # (Auto) 0.7 Eos # (Auto) 0.1 Baso # (Auto) 0.0 Absolute Nucleated RBC 0.00 Nucleated RBC % 0.0 Sodium 136 Potassium 3.5 Chloride 101 Carbon Dioxide 24 Anion Gap 11.0 BUN 16 Creatinine 0.8 Estimated GFR (MDRD) 96 Glucose 123 H Lactic Acid 1.1 Calcium 8.9 Urine Color Urine Clarity Urine pH Ur Specific [place] Urine Protein Urine Glucose (UA) Urine Ketones Urine Occult Blood Urine Nitrite Urine Bilirubin Urine Urobilinogen Ur Leukocyte Esterase Urine RBC Urine WBC Ur Squamous Epith Cells Urine Bacteria Ur Microscopic Review Urine Culture Comments 01/21/19 23:25 WBC RBC Hgb Hct MCV MCH MCHC RDW Plt Count MPV Neut # (Auto) Lymph # (Auto) [place] # (Auto) Eos # (Auto) Baso # (Auto) Absolute Nucleated RBC Nucleated RBC % Sodium Potassium Chloride Carbon Dioxide Anion Gap BUN Creatinine Estimated GFR (MDRD) Glucose Lactic Acid Calcium Urine Color YELLOW Urine Clarity HAZY Urine pH 7.5 Ur Specific [place] 1.015 Urine Protein 30 H Urine Glucose (UA) NEGATIVE Urine Ketones NEGATIVE Urine Occult Blood LARGE H Urine Nitrite NEGATIVE Urine Bilirubin NEGATIVE Urine Urobilinogen 0.2 (NORMAL) Ur Leukocyte Esterase TRACE H Urine RBC TNTC H Urine WBC 0-3 Ur Squamous Epith Cells RARE Squamous Urine Bacteria Rare Ur Microscopic Review INDICATED Urine Culture Comments INDICATED PD MEDICAL DECISION MAKING - ED course Complexity details: reviewed old records, reviewed results, re-evaluated patient, considered differential, d/w patient, d/w family Departure - Departure Disposition: Home, Self Care Clinical Impression: Fever Condition: Good Health Concerns: Fever Plan of Treatment: Continue previously prescribed antibiotics Care Goals: elimination of infection Assessment: see diagnosis Instructions: ED Fever Unconf Cause Discharge Date/Time: 01/22/19 00:51
[2019-01-21 23:05] LABS: BASOPHILS % (AUTO) 0.3 %; EOSINOPHILS # (AUTO) 0.1 10^3/uL (0.0-0.7); EOSINOPHILS % (AUTO) 1.6 %; LYMPHOCYTES # (AUTO) 0.7 10^3/uL (1.5-3.5); LYMPHOCYTES % (AUTO) 11.5 %; MEAN CORPUSCULAR HEMOGLOBIN 28.9 pg (27.0-31.0); MEAN CORPUSCULAR HGB CONC 32.3 g/dL (32.0-36.0); MEAN CORPUSCULAR VOLUME 89.5 fL (80.0-94.0); MEAN PLATELET VOLUME 11.1 fL (7.4-11.4); MONOCYTES # (AUTO) 0.7 10^3/uL (0.0-1.0); MONOCYTES % (AUTO) 10.4 %; NEUTROPHILS # (AUTO) 4.8 10^3/uL (1.5-6.6); NEUTROPHILS % (AUTO) 75.6 %; PLT - PLATELET COUNT 242 10^3/uL (130-450); RED BLOOD COUNT 3.81 10^6/uL (4.70-6.10); RED CELL DISTRIBUTION WIDTH 12.9 % (12.0-15.0); WHITE BLOOD COUNT 6.3 x10^3/uL (4.8-10.8)
[2019-01-21 23:13] LABS: CALCIUM 8.9 mg/dL (8.5-10.3); CREATININE 0.8 mg/dL (0.6-1.2)
[2019-01-21 23:34] LABS: BILIRUBIN,URINE NEGATIVE (NEGATIVE); GLUCOSE, URINE (UA) NEGATIVE (NEGATIVE); KETONES,URINE (UA) NEGATIVE (NEGATIVE); LEUKOCYTE ESTERASE, URINE TRACE (NEGATIVE); NITRITE,URINE NEGATIVE (NEGATIVE); OCCULT BLOOD,URINE LARGE (NEGATIVE); PH,URINE 7.5 PH (5.0-7.5); PROTEIN,URINE 30 mg/dL (NEGATIVE); UROBILINOGEN,URINE 0.2 (NORMAL) E.U./dL (NORMAL)
[2019-01-21 23:36] LABS: CLARITY,URINE HAZY (CLEAR)
[2019-01-21 23:42] LABS: BACTERIA,URINE Rare /HPF (None Seen); RBC,URINE TNTC /HPF (0-5); SQUAMOUS EPITHELIAL CELL,UR RARE Squamous (<= Few)
[2019-01-22 00:50] VITALS: BP 132/62
== END 2019-01-22 00:51 | disposition home or self-care (01) ==
LOC: ED 21:36
DX: R50.9 Fever, unspecified (principal); Z96.0 Presence of urogenital implants
CPT/HCPCS: 36415; 80048; 81001; 81003; 83605; 85025; 87086; 99282; 99283

== ENCOUNTER 2019-06-09 15:02 | Outpatient (CLI) | payer MEDICARE, OTHER | END 2019-06-09 15:03 | disposition critical access hospital (66) | LOC: EMS 15:02 | PROVIDERS: ATTEND Surgery | DX: R42 Dizziness and giddiness (principal); R47.81 Slurred speech; W18.39XA Other fall on same level, initial encounter; Y92.000 Kitchen of unspecified non-institutional (private) residence as the place of occurrence of the external cause | CPT/HCPCS: A0425; A0427 ==

== ENCOUNTER 2019-06-09 15:36 | Observation (INO) | payer MEDICARE, OTHER ==
[2019-06-09] MEDS ORDERED: METOPROLOL 5 MG/5 ML VIAL IVP STA (16:01)
--- NOTE | 2019-06-09 16:07 | ED Physician Documentation ---
PD HPI FOCAL NEURO - Stated complaint Stated Complaint: DIZZY - Chief complaint Chief Complaint: Neuro - History obtained from History obtained from: Patient, Family - History of Present Illness Timing - onset: Yesterday (The patient noted onset of dizziness with sitting up and movement initially early yesterday and has persisted during that time. He was feeling off balance and having difficulty with walking. He sat up in bed this afternoon and felt off balance and fell to the side without significant impact. He states he did hit the back of his head on the bed. He denied any loss of consciousness. He denied any near syncope. He did feel he was having a little bit of slowness of his speech though he felt the content was appropriate. He feels generally weak without any unilateral deficit. The symptoms are new for him and started again 1-1/2 to 2 days ago with the dizziness but he does feel he is having worsening symptoms today.) Timing - details: Abrupt onset, Still present, Constant (worsening with some slowness of speech today) Severity of deficit: Moderate Weakness: Leg, Right, Left. 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 negative: Anticoagulated, Atrial fibrillation Baseline status: positive: A&OX3, ambulatory, indep Similar symptoms before: Has not had sx before Recently seen: Not recently seen Review of Systems Constitutional: denies: Fever, Chills Nose: denies: Rhinorrhea / runny nose, Congestion Throat: denies: Sore throat Respiratory: denies: Cough GI: denies: Abdominal Pain, Nausea, Vomiting, Diarrhea : denies: Dysuria, Frequency Skin: denies: Rash, Lesions Musculoskeletal: denies: Neck pain, Back pain Neurologic: reports: Difficulty speaking (he feels is slower and deliberate to get sentences out. Content seems okay to him and daughter.). 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) - Present Medications Home Medications: Ambulatory Orders Medication Instructions Recorded Confirmed Ciprofloxacin [Cipro] 500 mg PO BID #42 tablet 01/20/19 Finasteride [Proscar] 5 mg PO DAILY #30 tablet 01/20/19 Tamsulosin HCl [Flomax] 0.4 mg PO QPM #30 cap.er.24h 01/20/19 - Allergies Allergies/Adverse Reactions: Allergies Allergy/AdvReac Type Severity Reaction Status Date / Time No Known Drug Allergies Allergy Verified 06/09/19 15:43 - Social History Does the pt smoke?: No Smoking Status: Never smoker Does the pt drink ETOH?: Yes Does the pt have substance abuse?: No - Immunizations Immunizations are current?: No Immunizations: TDAP >10years/unknown - POLST Patient has POLST: No POLST Status: Full Code PD ED PE NORMAL - Vitals Vital signs reviewed: Yes - General General: Alert and oriented X 3, No acute distress, Well developed/nourished - HEENT HEENT: Atraumatic, PERRL, EOMI (no noted nystagmus. 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.), Pharynx benign - Neck Neck: Supple, no meningeal sign, No adenopathy, No bruit - Cardiac Cardiac: RRR, No murmur - Respiratory Respiratory: Clear bilaterally - Abdomen Abdomen: Soft, Non tender - Male Male : Deferred - Rectal Rectal: Deferred - Derm Derm: Normal color, Warm and dry - Extremities Extremities: No deformity, No tenderness to palpate, Normal ROM s pain - Neuro Neuro: Alert and oriented X 3, No motor deficit, No sensory deficit, Normal speech NIHSS - Level of Consciousness Level of consciousness: (0) Alert, Keenly responsive LOC Questions: (0) Answers both Q's correct LOC Commands: (0) Performs both correctly - Gaze Best Gaze: (0) Normal - Visual Visual: (0) No loss - Facial Palsy Facial Palsy: (0) Normal, symmetrical movement - Motor Arms (both separate) Motor Arm (right): (0) No drift Motor Arm (left): (0) No drift - Motor Legs (both separate) Motor Leg (right): (0) No drift Motor Leg (left): (0) No drift - Limb Ataxia Limb Ataxia: (1) Present in 1 limb (he did seem slightly off with left leg movement) - Sensory Sensory: (0) Normal - Best Language Best Language: (0) No aphasia - Dysarthria Dysarthria: (0) Normal - Extinction and Inattention (formally neg Extinction and inattention: (0) No abnormality - Total Score/Results Total Score/Result: 1 Results - Vitals Vitals: Vital Signs - 24 hr 06/09/19 06/09/19 06/09/19 15:41 16:40 16:47 Heart Rate 81 73 74 Respiratory 20 20 18 Rate Blood Pressure 207/80 H 186/86 H 177/76 H O2 Saturation 95 98 100 06/09/19 18:00 Heart Rate 64 Respiratory 18 Rate Blood Pressure 171/74 H O2 Saturation 98 Oxygen O2 Source Room air - Labs Labs: Laboratory Tests 06/09/19 06/09/19 06/09/19 16:10 16:45 16:45 WBC 5.9 RBC 5.06 Hgb 14.7 Hct 44.2 MCV 87.4 MCH 29.1 MCHC 33.3 RDW 12.6 Plt Count 229 MPV 11.4 Neut # (Auto) 4.5 Lymph # (Auto) 0.9 L Granite # (Auto) 0.5 Eos # (Auto) 0.0 Baso # (Auto) 0.0 Absolute Nucleated RBC 0.00 Nucleated RBC % 0.0 ESR Sodium 137 Potassium 3.8 Chloride 99 L Carbon Dioxide 29 Anion Gap 9.0 BUN 14 Creatinine 0.8 Estimated GFR (MDRD) 96 Glucose 110 H Calcium 9.6 Magnesium 2.2 Total Bilirubin 1.4 H AST 19 ALT 28 Alkaline Phosphatase 44 Total Protein 7.5 Albumin 4.5 Globulin 3.0 Albumin/Globulin Ratio 1.5 Lipase 28 Urine Color YELLOW Urine Clarity CLEAR Urine pH 6.5 Ur Specific [place] 1.015 Urine Protein NEGATIVE Urine Glucose (UA) NEGATIVE Urine Ketones NEGATIVE Urine Occult Blood NEGATIVE Urine Nitrite NEGATIVE Urine Bilirubin NEGATIVE Urine Urobilinogen 0.2 (NORMAL) Ur Leukocyte Esterase NEGATIVE Ur Microscopic Review NOT INDICATED Urine Culture Comments NOT INDICATED 06/09/19 16:45 WBC RBC Hgb Hct MCV MCH MCHC RDW Plt Count MPV Neut # (Auto) Lymph # (Auto) Granite # (Auto) Eos # (Auto) Baso # (Auto) Absolute Nucleated RBC Nucleated RBC % ESR 6 Sodium Potassium Chloride Carbon Dioxide Anion Gap BUN Creatinine Estimated GFR (MDRD) Glucose Calcium Magnesium Total Bilirubin AST ALT Alkaline Phosphatase Total Protein Albumin Globulin Albumin/Globulin Ratio Lipase Urine Color Urine Clarity Urine pH Ur Specific [place] Urine Protein Urine Glucose (UA) Urine Ketones Urine Occult Blood Urine Nitrite Urine Bilirubin Urine Urobilinogen Ur Leukocyte Esterase Ur Microscopic Review Urine Culture Comments - Rads (name of study) head/neck CT - angio Radiology: Prelim report reviewed (no stenoses at carotids. Intracranial has multiple stenoses higher. No noted occlusions. No ICH nor tumors. ), See rad report PD MEDICAL DECISION MAKING - ED course Complexity details: reviewed results (no ICH and no acute intervenable process. Will give ASA. ), considered differential (has dizziness and balance problems since yesterday. Known vascular problems. Does have some elevated BP but may be responsive; symptoms do not sound like hypertensive urgency. He does not have nystagmus and no URI symptoms. So concern for cerebellar cause. Will need MRI to further assess. ), d/w patient, d/w family, d/w etl consultant (Hospitalist) ED course: symptoms since yesterday, so not lytic candidate. No endovascular process. Concern for CVA. Departure - Departure Disposition: ED Place in Observation Clinical Impression: Dizziness, Balance disorder, Stroke-like symptoms Condition: Stable Record reviewed to determine appropriate education?: Yes Discharge Date/Time: 06/09/19 18:55
[2019-06-09 16:18] LABS: BILIRUBIN,URINE NEGATIVE (NEGATIVE); GLUCOSE, URINE (UA) NEGATIVE (NEGATIVE); KETONES,URINE (UA) NEGATIVE (NEGATIVE); LEUKOCYTE ESTERASE, URINE NEGATIVE (NEGATIVE); NITRITE,URINE NEGATIVE (NEGATIVE); OCCULT BLOOD,URINE NEGATIVE (NEGATIVE); PH,URINE 6.5 PH (5.0-7.5); PROTEIN,URINE NEGATIVE (NEGATIVE); UROBILINOGEN,URINE 0.2 (NORMAL) E.U./dL (NORMAL)
[2019-06-09] MEDS ORDERED: IOVERSOL 320 100 ML VIAL IVP ONE ×2 (16:18→16:33)
[2019-06-09 16:21] LABS: CLARITY,URINE CLEAR (CLEAR)
[2019-06-09 16:56] LABS: BASOPHILS % (AUTO) 0.5 %; EOSINOPHILS % (AUTO) 0.3 %; HGB - HEMOGLOBIN 14.7 g/dL (14.0-18.0); LYMPHOCYTES # (AUTO) 0.9 10^3/uL (1.5-3.5); LYMPHOCYTES % (AUTO) 14.8 %; MEAN CORPUSCULAR HEMOGLOBIN 29.1 pg (27.0-31.0); MEAN CORPUSCULAR HGB CONC 33.3 g/dL (32.0-36.0); MEAN CORPUSCULAR VOLUME 87.4 fL (80.0-94.0); MEAN PLATELET VOLUME 11.4 fL (7.4-11.4); MONOCYTES # (AUTO) 0.5 10^3/uL (0.0-1.0); NEUTROPHILS # (AUTO) 4.5 10^3/uL (1.5-6.6); NEUTROPHILS % (AUTO) 76.1 %; PLT - PLATELET COUNT 229 10^3/uL (130-450); RED BLOOD COUNT 5.06 10^6/uL (4.70-6.10); RED CELL DISTRIBUTION WIDTH 12.6 % (12.0-15.0); WHITE BLOOD COUNT 5.9 x10^3/uL (4.8-10.8)
[2019-06-09 17:10] LABS: ALBUMIN 4.5 g/dL (3.2-5.5); ALBUMIN/GLOBULIN RATIO 1.5 (1.0-2.2); BILIRUBIN,TOTAL 1.4 mg/dL (0.2-1.0); CALCIUM 9.6 mg/dL (8.5-10.3); CREATININE 0.8 mg/dL (0.6-1.2); MAGNESIUM 2.2 mg/dL (1.7-2.8); TOTAL PROTEIN 7.5 g/dL (6.7-8.2)
--- NOTE | 2019-06-09 17:56 | CT Report ---
Reason: dizziness/balance/slow speech Procedure Date: 06/09/2019 Accession Number: [id number] / [id number] Procedure: CT - ANGIO NECK W CPT Code: Final Report FULL RESULT: EXAM: CT ANGIOGRAM HEAD AND NECK. CT SCAN HEAD WITHOUT AND WITH CONTRAST. EXAM DATE: 06/09/2019 04:25 PM. CLINICAL HISTORY: Dizziness/balance/slow speech. COMPARISON: None. TECHNIQUE: Routine axial helical CTA imaging was performed from the aortic arch through the [place]. Routine axial CT imaging of the head was performed prior to and following contrast administration. Reconstructions: Routine multiplanar 3D MIP reconstructions. IV contrast: 80 cc Optiray 320. NASCET Criteria are used for stenosis measurements. In accordance with CT protocol optimization, one or more of the following dose reduction techniques were utilized for this exam: automated exposure control, adjustment of mA and/or KV based on patient size, or use of iterative reconstructive technique. FINDINGS: CT SCAN HEAD: Parenchyma: No intraparenchymal hemorrhage. No evidence of mass, midline shift, or CT findings of acute infarction. Ivan-white differentiation is distinct. Patchy periventricular and deep white matter hypodensity is noted throughout the cerebral hemispheres. No abnormal intracranial enhancement. Extra-axial Spaces: Normal for age. No subdural or epidural collections identified. Ventricles: Normal in size and position. Sinuses and Orbits: Imaged paranasal sinuses, orbits, and mastoids show no significant abnormality. Bones: No evidence of fracture or calvarial defect. Other: Mild vascular calcifications are seen involving intracranial ICA. Mild scattered atherosclerotic calcifications are seen involving the basilar artery. CT ANGIOGRAM EXTRACRANIAL CIRCULATION: The visualized arch is unremarkable. 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 Great vessels off the arch are patent. Right Carotid: The common carotid, internal carotid, and external carotid arteries are widely patent. No dissection. Mild atherosclerotic calcification is seen at the CCA bifurcation and proximal ICA. No significant stenosis. Left Carotid: The common carotid, internal carotid, and external carotid arteries are widely patent. No dissection, significant atherosclerotic plaque, or calcification identified. Minimal intimal thickening is seen at the CCA bifurcation. Vertebrals: The vertebral arteries are codominant. Right vertebral artery: Intimal thickening is seen at the origin and proximal V1 segment. Severe, 75%, stenosis is seen. Intimal thickening with mild, 45%, stenosis is seen in the proximal V2 segment at the level of the C6 transverse foramen. Otherwise cervical vertebral artery is patent. No dissection. Left vertebral artery: Atherosclerotic calcification is seen at the origin. This limits evaluation of stenosis. There likely is moderate to severe stenosis. Otherwise, cervical vertebral artery is patent. No dissection. Moderate, 55%, stenosis is seen at the junction of the V3 and V4 segments. CT ANGIOGRAM INTRACRANIAL CIRCULATION: Multilevel atherosclerotic stenosis is seen involving intracranial circulation. No intracranial aneurysm. Right carotid circulation: Mild tortuosity and moderate calcification is seen involving the anterior cavernous and proximal supracavernous segments of the ICA. Mild tandem stenoses are present. The P-comm is patent and unremarkable. The MCA is patent. No significant stenosis. The CARLIE is patent. Moderate to severe stenosis is seen in the proximal A1 segment. Left carotid circulation: Mild to moderate atherosclerotic calcification is seen in the cavernous and supracavernous segments. Mild multilevel stenosis is seen. No significant stenosis. The P-comm is patent and unremarkable. The M1 segment and bifurcation is patent. Severe stenosis is seen in proximal posterior division M2 branch at the junction of sylvian fissure and lateral fissure. The A-comm is patent. Posterior circulation: The vertebral arteries are codominant. The right vertebral artery demonstrates severe stenosis in the distal V4 segment at the union with the basilar artery. The PICA arises from the mid V4 segment. Multilevel severe stenosis is seen throughout the proximal and mid PICA. The left vertebral artery demonstrates moderate stenosis at the junction of the V3 and V4 segment as it pierces the dura. Otherwise patent. The left PICA does not appear to arise from the vertebral artery. Distal left PICA is likely supplied by the right PICA. Basilar artery demonstrates irregularity with multiple foci of moderate stenosis throughout its mid and distal aspects. Bilateral AICA and superior cerebellar arteries are patent. Extensive multilevel stenosis is seen throughout the right PYTHON ARCHITECT. Moderate and severe stenosis is seen in P1, P2, and P3 segments. The left PYTHON ARCHITECT is patent. Severe stenosis is seen at the junction of P2 and P3 segments. The dural venous sinuses are patent. Other: The visualized bones, soft tissues, and lung apices are unremarkable. IMPRESSION: CT SCAN HEAD: 1. No acute intracranial abnormality. No abnormal enhancement. 2. Patchy white matter hypodensity is seen throughout the cerebral hemispheres. This is nonspecific. This can be seen secondary to small vessel ischemic change. CT ANGIOGRAM NECK: 1. Bilateral carotid circulation. Mild atherosclerotic change at carotid bifurcation, greater on the right. No significant stenosis. 2. Right vertebral artery: Severe, 75%, stenosis in the proximal V1 segment. Mild, 45%, stenosis in the proximal V2 segment. 3. Left vertebral artery: Calcification at origin with moderate to severe stenosis. Moderate to severe stenosis at junction of V3 and V4 segments. CT ANGIOGRAM HEAD: 1. No large vessel occlusion. No aneurysm. 2. Extensive atherosclerotic change with multilevel stenosis involving intracranial circulation. Areas of severe stenosis include: Right carotid circulation: -CARLIE: Proximal A1 segment. Left carotid circulation: -MCA: Proximal posterior division M2 branch. Right vertebral artery: Distal V4 segment. -PICA: Multiple foci throughout proximal and mid PICA. Left vertebral artery: Junction of V3 and V4 segments. Basilar artery: Multilevel moderate stenosis predominating in mid and distal basilar artery. Right PYTHON ARCHITECT: Multilevel stenoses in P1, P2, and P3 segments. Left PYTHON ARCHITECT: Severe stenosis at junction of P2 and P3 segments. RADIA
--- NOTE | 2019-06-09 17:56 | CT Report ---
Reason: dizziness/balance/slow speech Procedure Date: 06/09/2019 Accession Number: [id number] / [id number] Procedure: CT - ANGIO HEAD W/WO CPT Code: Final Report FULL RESULT: EXAM: CT ANGIOGRAM HEAD AND NECK. CT SCAN HEAD WITHOUT AND WITH CONTRAST. EXAM DATE: 06/09/2019 04:25 PM. CLINICAL HISTORY: Dizziness/balance/slow speech. COMPARISON: None. TECHNIQUE: Routine axial helical CTA imaging was performed from the aortic arch through the [place] of [place]. Routine axial CT imaging of the head was performed prior to and following contrast administration. Reconstructions: Routine multiplanar 3D MIP reconstructions. IV contrast: 80 cc Optiray 320. NASCET Criteria are used for stenosis measurements. In accordance with CT protocol optimization, one or more of the following dose reduction techniques were utilized for this exam: automated exposure control, adjustment of mA and/or KV based on patient size, or use of iterative reconstructive technique. FINDINGS: CT SCAN HEAD: Parenchyma: No intraparenchymal hemorrhage. No evidence of mass, midline shift, or CT findings of acute infarction. Ivan-white differentiation is distinct. Patchy periventricular and deep white matter hypodensity is noted throughout the cerebral hemispheres. No abnormal intracranial enhancement. Extra-axial Spaces: Normal for age. No subdural or epidural collections identified. Ventricles: Normal in size and position. Sinuses and Orbits: Imaged paranasal sinuses, orbits, and mastoids show no significant abnormality. Bones: No evidence of fracture or calvarial defect. Other: Mild vascular calcifications are seen involving intracranial ICA. Mild scattered atherosclerotic calcifications are seen involving the basilar artery. CT ANGIOGRAM EXTRACRANIAL CIRCULATION: The visualized arch is unremarkable. 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 Great vessels off the arch are patent. Right Carotid: The common carotid, internal carotid, and external carotid arteries are widely patent. No dissection. Mild atherosclerotic calcification is seen at the CCA bifurcation and proximal ICA. No significant stenosis. Left Carotid: The common carotid, internal carotid, and external carotid arteries are widely patent. No dissection, significant atherosclerotic plaque, or calcification identified. Minimal intimal thickening is seen at the CCA bifurcation. Vertebrals: The vertebral arteries are codominant. Right vertebral artery: Intimal thickening is seen at the origin and proximal V1 segment. Severe, 75%, stenosis is seen. Intimal thickening with mild, 45%, stenosis is seen in the proximal V2 segment at the level of the C6 transverse foramen. Otherwise cervical vertebral artery is patent. No dissection. Left vertebral artery: Atherosclerotic calcification is seen at the origin. This limits evaluation of stenosis. There likely is moderate to severe stenosis. Otherwise, cervical vertebral artery is patent. No dissection. Moderate, 55%, stenosis is seen at the junction of the V3 and V4 segments. CT ANGIOGRAM INTRACRANIAL CIRCULATION: Multilevel atherosclerotic stenosis is seen involving intracranial circulation. No intracranial aneurysm. Right carotid circulation: Mild tortuosity and moderate calcification is seen involving the anterior cavernous and proximal supracavernous segments of the ICA. Mild tandem stenoses are present. The P-comm is patent and unremarkable. The MCA is patent. No significant stenosis. The CARLIE is patent. Moderate to severe stenosis is seen in the proximal A1 segment. Left carotid circulation: Mild to moderate atherosclerotic calcification is seen in the cavernous and supracavernous segments. Mild multilevel stenosis is seen. No significant stenosis. The P-comm is patent and unremarkable. The M1 segment and bifurcation is patent. Severe stenosis is seen in proximal posterior division M2 branch at the junction of sylvian fissure and lateral fissure. The A-comm is patent. Posterior circulation: The vertebral arteries are codominant. The right vertebral artery demonstrates severe stenosis in the distal V4 segment at the union with the basilar artery. The PICA arises from the mid V4 segment. Multilevel severe stenosis is seen throughout the proximal and mid PICA. The left vertebral artery demonstrates moderate stenosis at the junction of the V3 and V4 segment as it pierces the dura. Otherwise patent. The left PICA does not appear to arise from the vertebral artery. Distal left PICA is likely supplied by the right PICA. Basilar artery demonstrates irregularity with multiple foci of moderate stenosis throughout its mid and distal aspects. Bilateral AICA and superior cerebellar arteries are patent. Extensive multilevel stenosis is seen throughout the right PRE OWNED SALES MANAGER. Moderate and severe stenosis is seen in P1, P2, and P3 segments. The left [employer] OWNED SALES MANAGER is patent. Severe stenosis is seen at the junction of P2 and P3 segments. The dural venous sinuses are patent. Other: The visualized bones, soft tissues, and lung apices are unremarkable. IMPRESSION: CT SCAN HEAD: 1. No acute intracranial abnormality. No abnormal enhancement. 2. Patchy white matter hypodensity is seen throughout the cerebral hemispheres. This is nonspecific. This can be seen secondary to small vessel ischemic change. CT ANGIOGRAM NECK: 1. Bilateral carotid circulation. Mild atherosclerotic change at carotid bifurcation, greater on the right. No significant stenosis. 2. Right vertebral artery: Severe, 75%, stenosis in the proximal V1 segment. Mild, 45%, stenosis in the proximal V2 segment. 3. Left vertebral artery: Calcification at origin with moderate to severe stenosis. Moderate to severe stenosis at junction of V3 and V4 segments. CT ANGIOGRAM HEAD: 1. No large vessel occlusion. No aneurysm. 2. Extensive atherosclerotic change with multilevel stenosis involving intracranial circulation. Areas of severe stenosis include: Right carotid circulation: -CARLIE: Proximal A1 segment. Left carotid circulation: -MCA: Proximal posterior division M2 branch. Right vertebral artery: Distal V4 segment. -PICA: Multiple foci throughout proximal and mid PICA. Left vertebral artery: Junction of V3 and V4 segments. Basilar artery: Multilevel moderate stenosis predominating in mid and distal basilar artery. Right [employer] OWNED SALES MANAGER: Multilevel stenoses in P1, P2, and P3 segments. Left PRE OWNED SALES MANAGER: Severe stenosis at junction of P2 and P3 segments. RADIA
[2019-06-09] MEDS ORDERED: SODIUM CHLORIDE FLUSH 0.9% 10 ML SYRINGE IVP PRN (18:27)
[2019-06-09] MEDS ORDERED: ACETAMINOPHEN 325 MG TABLET PO PRN (18:27)
[2019-06-09] MEDS ORDERED: ASPIRIN 325 MG TABLET PO SCH (19:00)
[2019-06-09] MEDS ORDERED: ATORVASTATIN 40 MG TABLET PO SCH (21:00)
[2019-06-09] MEDS: HEPARIN 5,000 UNIT/ML VIAL SUBQ SCH (21:26)
--- NOTE | 2019-06-09 21:33 | MRI Report ---
Reason: Weakness. Falls. Poor balance. Eval for CVA. Procedure Date: 06/09/2019 Accession Number: [id number] / [id number] Procedure: MRI - Brain W/O CPT Code: Addended Final Report FULL RESULT: EXAM: MRI BRAIN WITHOUT CONTRAST. EXAM DATE: 06/09/2019 08:56 PM. CLINICAL HISTORY: 68-year-old presenting with weakness and poor balance resulting in frequent falls. Evaluate for intracranial pathology. COMPARISON: CTA head and neck 06/09/2019. TECHNIQUE: Multiplanar, multisequence T1-weighted and fluid-sensitive MR sequences of the brain were performed. Sequences optimized for routine evaluation. Other: None. IV Contrast: None. FINDINGS: Brain Volume: Normal for age. Parenchyma/Dura: No acute parenchymal hemorrhage, mass, or midline shift. There is a region of DWI signal hyperintensity with associated ADC signal hypointensity involving the right paramedian lower des measuring 6 x 8 mm (series 1205, image 64) representing restricted diffusion. There is associated T2/FLAIR signal hyperintensity. There is a second punctate to small focus of DWI signal hyperintensity involving the superior right occipital lobe measuring 4 x 7 mm (series 1205, image 136) with no associated ADC signal hypointensity. There is associated T2/FLAIR signal hyperintensity. This likely represents T2 shine through. There is old chronic lacunar infarct of the superior right crispin-des. There are additional old chronic lacunar infarcts seen involving bilateral basal ganglia. There is moderate bilateral areas of T2/FLAIR signal hyperintensity seen. No areas of abnormal chronic hemosiderin deposition seen. Ventricles/Cisterns: No hydrocephalus. No abnormal extra-axial fluid collection or hemorrhage. Orbits: Symmetric and unremarkable. Sella Turcica: The pituitary gland, cavernous sinuses, suprasellar cistern and optic chiasm are unremarkable. IAC: Symmetric and unremarkable. Vasculature: Normal signal flow void is seen in the major arterial structures at the skull base. Sinuses: No acute appearing sinus disease. Bones: No focal pathologic appearing marrow signal changes. Other: None. IMPRESSION: 1. MR findings suggesting punctate to small acute ischemic infarct of the right paramedian lower crispin-des measuring 6 x 8 mm with no evidence of hemorrhagic transformation. This is a deep sea diver type infarct. 2. No acute intracranial hemorrhage, mass, hydrocephalus, or midline shift. 3. 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 Additional moderate white matter changes that are nonspecific but most likely represent sequela of chronic small vessel ischemic disease. RADIA The call report notification system was initiated by Dr. Gomez Mckeon at 09:31 PM on 06/09/2019. ADDENDUM: 06/09/19 21:41 The above call report findings were discussed with Dr Johnson by Dr. Gomez Mckeon at 09:41 PM on 06/09/2019.
[2019-06-09] MEDS ORDERED: TAMSULOSIN 0.4 MG CAPSULE PO SCH (22:00)
[2019-06-09] MEDS: FINASTERIDE 5 MG TABLET PO SCH (22:00)
[2019-06-09] MEDS: SODIUM CHLORIDE FLUSH 0.9% 10 ML SYRINGE IVP SCH (23:38)
--- NOTE | 2019-06-10 02:41 | HISTORY & PHYSICAL EXAMINATION ---
DATE OF SERVICE: 06/09/2019 Physician: Graciela Johnson MD PRIMARY CARE PROVIDER: Tu Obregon MD. ADMITTING PROVIDER: Graciela Johnson MD CHIEF COMPLAINT: Severe dizziness with fall. HISTORY OF PRESENT ILLNESS: This is a 68-year-old anh male who was admitted to the hospital in December of 2018 with sepsis. This was secondary to urinary tract infection after a cystoscopy. His risk factors for stroke include male sex, but he does not have high blood pressure, hyperlipidemia, diabetes and is a nonsmoker. Approximately 1-1/2 days ago, he began having dizziness when he walked. He denied any headaches, facial dysesthesia. He is adamant that it only happens when he moves. If he is lying down in bed, he is not dizzy. He sat up in bed this afternoon, and when he sat up, lost his balance and fell to the side of the bed. Hit the back of his head without any loss of consciousness. He does feel like his speech is slower, but, again, denies facial dysesthesia, tongue dysesthesia. There is no arm or leg weakness, but he describes more of a generalized feeling of "overall being weak." He denies fever or chills. No cough. No new medication. 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 He cannot comment on any visual changes. PAST MEDICAL HISTORY 1. Benign prostatic hypertrophy with a PSA that is now ~10. He has urinary retention. Underwent a cystoscopy in December 2018. As he was being sedated for that, he had aspiration, and was intubated and bronched. The cystoscopy was completed. This was done at [facility] approximately 01/11/2019. He stayed in the hospital for four days, was discharged approximately 01/15/2019. He then presented to our hospital 01/17/2019 with sepsis from a UTI. 2. 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 3. Gastroesophageal reflux disease. 4. Abnormal CT with bony lesion seen December 2018. He says that he has had a subsequent bone scan and it is negative. He does not need any further follow up. ALLERGIES: NO KNOWN DRUG ALLERGIES. MEDICATIONS 1. Flomax 0.4 mg a day. 2. Finasteride 5 mg a day. SOCIAL HISTORY: He lives with his daughter and her family. Although he is blind, he does not need a cane in the house. Daughter takes him to his appointments. He denies any smoking, excessive drinking and denies recreational substance abuse. FAMILY HISTORY: Mom of a stroke. Dad of lung cancer. His dad smoked heavily. Brother at age 61 from complications of prostate cancer and valvular heart disease. His children are healthy without any cardiac, endocrine, cancer, pulmonary complaints. REVIEW OF SYSTEMS CONSTITUTIONAL: He denies any constitutional symptoms of fevers, chills, unexpected weight changes, sweats. HEENT: He is blind. Denies any swallowing problems, speech problems. Mildly deaf. CARDIOVASCULAR: Occasionally has palpitations, but overall does not have any chest pain, irregular heartbeat, edema, orthopnea. His ability to get up and walk is not limited by his heart or lungs, but only by the dizziness of the last day and a half. PULMONARY: Denies coughing, wheezing or sputum production. No chest congestion. GASTROINTESTINAL: Denies change in bowel habits, abdominal pain. No diarrhea. He does have heartburn that is easily relieved by [id number] antacids. GENITOURINARY: As above in history of present illness. MUSCULOSKELETAL: Denies any significant joint pain, stiffness, history of gout. DERMATOLOGIC: Denies rashes, pruritus, new palpable lesions. PSYCHIATRIC: Denies depression, anxiety, suicidal ideation, hallucinations. NEUROLOGIC: As above in history of present illness. ENDOCRINE: Denies polyuria, polydipsia, polyphagia, heat or cold intolerance. HEMATOLOGIC: Denies bruising, or bleeding. PHYSICAL EXAMINATION VITAL SIGNS: The patient initially had a blood pressure in the emergency room of 207/80. On Med/Surg, he is 162/75. Temperature 37, pulse 61 and regular. Respirations 18 and 97% on room air. GENERAL: He is a 5 feet tall male who is 77.5 kg. Well-nourished, well- developed, short statured male, who looks his stated age. HEENT: Remarkable for very subtle left facial droop. Pupils are reactive. He is blind. NECK: Neck is supple without goiter or bruits. LUNGS: Clear to auscultation and percussion without any crackles, rhonchi, wheezing or increased respiratory effort with talking to me. HEART: PMI is normally placed with a regular rate and rhythm. No murmurs, no rubs, no gallops. ABDOMEN: Soft, nontender. No organomegaly. Normal bowel sounds. EXTREMITIES: Without clubbing, cyanosis or edema. No joint effusions. On his left hand, he has part of the distal nail missing on the index finger. He tells me that he was cooking, chopping vegetables and the knife was very sharp and he ended up hitting the tip of his finger. I pointed out to him that he is blind, and that cutting vegetables with a sharp knife may not be prudent. NEUROLOGIC: He is alert and oriented to person, place and time. Gives a lucid history. Cranial nerves II-XII are examined and he is blind, has slight tongue deviation to the left, slight left facial droop. Speech is low and hoarse and he says that is new for him today. Upper and lower extremity strength testing is intact. He is 4+/5, bilateral and symmetrical, with reflexes. However, [id number] is unable to be done and he past points using the left arm. Dysmetria is not present with rapid alternating hand movement. LABORATORY DATA: Sodium 137, potassium 3.8, BUN 14, creatinine 0.8. White cell count 5.9, hemoglobin 14.7, platelets 229. Sedimentation rate 6. Urinalysis is negative for glucose, ketones, blood, nitrites, leukocyte esterase. Head CTA shows no large vessel occlusions. No aneurysms. He has extensive atherosclerotic change with multilevel stenosis involving intracranial circulation. The areas of severe stenosis include the right carotid circulation, CARLIE, proximal A1 segment. The left carotid circulation has the MCA proximal posterior division M2 branch. The right vertebral artery has a distal V4 segment severe stenosis. Posterior inferior cerebellar artery has multiple foci throughout the proximal and mid pica. Left vertebral artery has severe stenosis at the junction of V3 and V4 segments. The basilar artery has moderate multilevel stenosis predominantly in the mid distal basilar artery. The right ENTRY LEVEL MECHANICAL ENGINEER has multilevel stenosis in P1, P2 and P3 segments. The left ENTRY LEVEL MECHANICAL ENGINEER has severe stenosis at the junction of P2 and P3 segments. The neck arteries have mild atherosclerotic changes at the carotid bifurcation, greater on the right as opposed to the left, but no significant stenosis. ASSESSMENT/PLAN 1. Probable left brain stroke versus transient ischemic attack. Deficits at this time or dizziness, left facial droop, left tongue deviation. Although he has dizziness is a subjective complaint, objectively there is not a lot of cerebellar dysfunction at this time. Plan: - Observation status. - Attestation that the patient will be discharged within 96 hours. - Aspirin and a statin. - MRI of the brain. - Consider echo if telemetry shows arrhythmia in 72 hours. 2. Benign prostatic hypertrophy history. Resume Flomax and finasteride. 3. History of sclerotic pelvic bony lesion. The patient verbally reports that the bone scan was negative after 01/15/2019 and no further workup needs to be done. 6. FULL CODE STATUS. 7. Deep venous thrombosis prophylaxis is currently sequential compression devices. He has also had heparin ordered. I will stop the SCD's since the patient hates them. TD: 06/09/2019 22:34 ABRAHAM
[2019-06-10 05:51] LABS: BASOPHILS % (AUTO) 0.5 %; EOSINOPHILS # (AUTO) 0.1 10^3/uL (0.0-0.7); EOSINOPHILS % (AUTO) 1.1 %; HGB - HEMOGLOBIN 14.4 g/dL (14.0-18.0); LYMPHOCYTES # (AUTO) 1.4 10^3/uL (1.5-3.5); LYMPHOCYTES % (AUTO) 25.2 %; MEAN CORPUSCULAR HEMOGLOBIN 29.1 pg (27.0-31.0); MEAN CORPUSCULAR HGB CONC 33.3 g/dL (32.0-36.0); MEAN CORPUSCULAR VOLUME 87.3 fL (80.0-94.0); MEAN PLATELET VOLUME 11.4 fL (7.4-11.4); MONOCYTES # (AUTO) 0.4 10^3/uL (0.0-1.0); MONOCYTES % (AUTO) 7.3 %; NEUTROPHILS # (AUTO) 3.7 10^3/uL (1.5-6.6); NEUTROPHILS % (AUTO) 65.5 %; PLT - PLATELET COUNT 241 10^3/uL (130-450); RED BLOOD COUNT 4.95 10^6/uL (4.70-6.10); RED CELL DISTRIBUTION WIDTH 12.6 % (12.0-15.0); WHITE BLOOD COUNT 5.6 x10^3/uL (4.8-10.8)
[2019-06-10 06:05] LABS: HB2 TOTAL 14.4 g/dL; HEMOGLOBIN A1C 0.58 g/dL; HEMOGLOBIN A1C % 5.8 % (4.6-6.2)
[2019-06-10 06:54] LABS: ALBUMIN 4.3 g/dL (3.2-5.5); ALBUMIN/GLOBULIN RATIO 1.7 (1.0-2.2); ALKALINE PHOSPHATASE 42 IU/L (42-121); ALT ALANINE AMINOTRANSFERASE 26 IU/L (10-60); AST ASPARTATE AMINOTRANSFERASE 19 IU/L (10-42); BILIRUBIN,TOTAL 1.4 mg/dL (0.2-1.0); BUN - BLOOD UREA NITROGEN 16 mg/dL (6-20); CALCIUM 9.7 mg/dL (8.5-10.3); CARBON DIOXIDE - CO2 27 mmol/L (21-32); CHLORIDE 104 mmol/L (101-111); CHOL/HDL RATIO 4.3 (<5.0); CHOLESTEROL 172 mg/dL; CREATININE 0.7 mg/dL (0.6-1.2); GFR - MDRD 112 (>89); GLUCOSE 105 mg/dL (70-100); HDL CHOLESTEROL 40 mg/dL; SODIUM 141 mmol/L (135-145); TOTAL PROTEIN 6.9 g/dL (6.7-8.2)
[2019-06-10 07:15] LABS: LDL CHOLESTEROL,DIRECT 93 mg/dL; LDLD/HDL RATIO 2.3 (<3.6)
[2019-06-10] MEDS: FINASTERIDE 5 MG TABLET PO SCH (08:22)
[2019-06-10] MEDS: SODIUM CHLORIDE FLUSH 0.9% 10 ML SYRINGE IVP SCH (08:22)
[2019-06-10] MEDS: HEPARIN 5,000 UNIT/ML VIAL SUBQ SCH (08:23)
[2019-06-10] MEDS ORDERED: ASPIRIN EC 81 MG TABLET PO SCH (09:00)
--- NOTE | 2019-06-10 11:44 | PROVIDER PROGRESS NOTE ---
Subjective - Prog Note Date Prog Note Date: 06/10/19 Prog Note Time: 11:41 (seen earlier today) Objective - Vital Signs/Intake & Output Vital Signs: Vital Signs x48h Temp Pulse Resp BP Pulse Ox 06/10/19 07:58 36.4 C L 69 30 H 153/77 H 93 06/10/19 05:45 36.4 C L 64 16 157/64 H 95 Intake & Output: Intake & Output 06/07/19 06/08/19 06/09/19 06/10/19 23:59 23:59 23:59 23:59 Intake Total 235 Balance 235 - Objective General Appearance: positive: No acute distress, Alert Abdomen: positive: Non-tender, Nml bowel sounds, No distention Skin: positive: Warm, Dry - Lab Results Fish Bones: 06/10/19 05:21 06/10/19 05:21 Other Labs: Lab Results x24hrs 06/10/19 06/10/19 06/10/19 Range/Units 05:21 05:21 05:21 WBC 5.6 (4.8-10.8) x10^3/uL RBC 4.95 (4.70-6.10) 10^6/uL Hgb 14.4 (14.0-18.0) g/dL Hct 43.2 (42.0-52.0) % MCV 87.3 (80.0-94.0) fL MCH 29.1 (27.0-31.0) pg MCHC 33.3 (32.0-36.0) g/dL RDW 12.6 (12.0-15.0) % Plt Count 241 (130-450) 10^3/uL MPV 11.4 (7.4-11.4) fL Neut # (Auto) 3.7 (1.5-6.6) 10^3/uL Lymph # (Auto) 1.4 L (1.5-3.5) 10^3/uL Benzie # (Auto) 0.4 (0.0-1.0) 10^3/uL Eos # (Auto) 0.1 (0.0-0.7) 10^3/uL Baso # (Auto) 0.0 (0.0-0.1) 10^3/uL Absolute Nucleated RBC 0.00 x10^3/uL Nucleated RBC % 0.0 /100WBC ESR (0-20) mm/Hr Sodium 141 (135-145) mmol/L Potassium 3.5 (3.5-5.0) mmol/L Chloride 104 (101-111) mmol/L Carbon Dioxide 27 (21-32) mmol/L Anion Gap 10.0 (6-13) BUN 16 (6-20) mg/dL Creatinine 0.7 (0.6-1.2) mg/dL Estimated GFR (MDRD) 112 (>89) Glucose 105 H (70-100) mg/dL Glycated Hemoglobin 5.8 (4.6-6.2) % Estim Average Glucose 120 H (70-100) Calcium 9.7 (8.5-10.3) mg/dL Magnesium (1.7-2.8) mg/dL Total Bilirubin 1.4 H (0.2-1.0) mg/dL AST 19 (10-42) IU/L ALT 26 (10-60) IU/L Alkaline Phosphatase 42 (42-121) IU/L Total Protein 6.9 (6.7-8.2) g/dL Albumin 4.3 (3.2-5.5) g/dL Globulin 2.6 (2.1-4.2) g/dL Albumin/Globulin Ratio 1.7 (1.0-2.2) Triglycerides 495 H ( - 149) mg/dL Cholesterol 172 ( - 199) mg/dL LDL Cholesterol Direct 93 ( - 129) mg/dL LDL Cholesterol, Calc Not Reportable VLDL Cholesterol Not Reportable HDL Cholesterol 40 L (60 - ) mg/dL LDL/HDL Ratio Not Reportable dLDL/HDL Ratio 2.3 (<3.6) Cholesterol/HDL Ratio 4.3 (<5.0) Lipase (22-51) U/L Urine Color Urine Clarity (CLEAR) Urine pH (5.0-7.5) PH Ur Specific [place] (1.002-1.030) Urine Protein (NEGATIVE) mg/dL Urine Glucose (UA) (NEGATIVE) mg/dL Urine Ketones (NEGATIVE) mg/dL Urine Occult Blood (NEGATIVE) Urine Nitrite (NEGATIVE) Urine Bilirubin (NEGATIVE) Urine Urobilinogen (NORMAL) E.U./dL Ur Leukocyte Esterase (NEGATIVE) Ur Microscopic Review Urine Culture Comments 1106/09/19 06/09/19 Range/Units 16:45 16:45 16:45 WBC 5.9 (4.8-10.8) x10^3/uL RBC 5.06 (4.70-6.10) 10^6/uL Hgb 14.7 (14.0-18.0) g/dL Hct 44.2 (42.0-52.0) % MCV 87.4 (80.0-94.0) fL MCH 29.1 (27.0-31.0) pg MCHC 33.3 (32.0-36.0) g/dL RDW 12.6 (12.0-15.0) % Plt Count 229 (130-450) 10^3/uL MPV 11.4 (7.4-11.4) fL Neut # (Auto) 4.5 (1.5-6.6) 10^3/uL Lymph # (Auto) 0.9 L (1.5-3.5) 10^3/uL Benzie # (Auto) 0.5 (0.0-1.0) 10^3/uL Eos # (Auto) 0.0 (0.0-0.7) 10^3/uL Baso # (Auto) 0.0 (0.0-0.1) 10^3/uL Absolute Nucleated RBC 0.00 x10^3/uL Nucleated RBC % 0.0 /100WBC ESR 6 (0-20) mm/Hr Sodium 137 (135-145) mmol/L Potassium 3.8 (3.5-5.0) mmol/L Chloride 99 L (101-111) mmol/L Carbon Dioxide 29 (21-32) mmol/L Anion Gap 9.0 (6-13) BUN 14 (6-20) mg/dL Creatinine 0.8 (0.6-1.2) mg/dL Estimated GFR (MDRD) 96 (>89) Glucose 110 H (70-100) mg/dL Glycated Hemoglobin (4.6-6.2) % Estim Average Glucose (70-100) Calcium 9.6 (8.5-10.3) mg/dL Magnesium 2.2 (1.7-2.8) mg/dL Total Bilirubin 1.4 H (0.2-1.0) mg/dL AST 19 (10-42) IU/L ALT 28 (10-60) IU/L Alkaline Phosphatase 44 (42-121) IU/L Total Protein 7.5 (6.7-8.2) g/dL Albumin 4.5 (3.2-5.5) g/dL Globulin 3.0 (2.1-4.2) g/dL Albumin/Globulin Ratio 1.5 (1.0-2.2) Triglycerides ( - 149) mg/dL Cholesterol ( - 199) mg/dL LDL Cholesterol Direct ( - 129) mg/dL LDL Cholesterol, Calc VLDL Cholesterol HDL Cholesterol (60 - ) mg/dL LDL/HDL Ratio dLDL/HDL Ratio (<3.6) Cholesterol/HDL Ratio (<5.0) Lipase 28 (22-51) U/L Urine Color Urine Clarity (CLEAR) Urine pH (5.0-7.5) PH Ur Specific [place] (1.002-1.030) Urine Protein (NEGATIVE) mg/dL Urine Glucose (UA) (NEGATIVE) mg/dL Urine Ketones (NEGATIVE) mg/dL Urine Occult Blood (NEGATIVE) Urine Nitrite (NEGATIVE) Urine Bilirubin (NEGATIVE) Urine Urobilinogen (NORMAL) E.U./dL Ur Leukocyte Esterase (NEGATIVE) Ur Microscopic Review Urine Culture Comments 06/09/19 Range/Units 16:10 WBC (4.8-10.8) x10^3/uL RBC (4.70-6.10) 10^6/uL Hgb (14.0-18.0) g/dL Hct (42.0-52.0) % MCV (80.0-94.0) fL MCH (27.0-31.0) pg MCHC (32.0-36.0) g/dL RDW (12.0-15.0) % Plt Count (130-450) 10^3/uL MPV (7.4-11.4) fL Neut # (Auto) (1.5-6.6) 10^3/uL Lymph # (Auto) (1.5-3.5) 10^3/uL Benzie # (Auto) (0.0-1.0) 10^3/uL Eos # (Auto) (0.0-0.7) 10^3/uL Baso # (Auto) (0.0-0.1) 10^3/uL Absolute Nucleated RBC x10^3/uL Nucleated RBC % /100WBC ESR (0-20) mm/Hr Sodium (135-145) mmol/L Potassium (3.5-5.0) mmol/L Chloride (101-111) mmol/L Carbon Dioxide (21-32) mmol/L Anion Gap (6-13) BUN (6-20) mg/dL Creatinine (0.6-1.2) mg/dL Estimated GFR (MDRD) (>89) Glucose (70-100) mg/dL Glycated Hemoglobin (4.6-6.2) % Estim Average Glucose (70-100) Calcium (8.5-10.3) mg/dL Magnesium (1.7-2.8) mg/dL Total Bilirubin (0.2-1.0) mg/dL AST (10-42) IU/L ALT (10-60) IU/L Alkaline Phosphatase (42-121) IU/L Total Protein (6.7-8.2) g/dL Albumin (3.2-5.5) g/dL Globulin (2.1-4.2) g/dL Albumin/Globulin Ratio (1.0-2.2) Triglycerides ( - 149) mg/dL Cholesterol ( - 199) mg/dL LDL Cholesterol Direct ( - 129) mg/dL LDL Cholesterol, Calc VLDL Cholesterol HDL Cholesterol (60 - ) mg/dL LDL/HDL Ratio dLDL/HDL Ratio (<3.6) Cholesterol/HDL Ratio (<5.0) Lipase (22-51) U/L Urine Color YELLOW Urine Clarity CLEAR (CLEAR) Urine pH 6.5 (5.0-7.5) PH Ur Specific [place] 1.015 (1.002-1.030) Urine Protein NEGATIVE (NEGATIVE) mg/dL Urine Glucose (UA) NEGATIVE (NEGATIVE) mg/dL Urine Ketones NEGATIVE (NEGATIVE) mg/dL Urine Occult Blood NEGATIVE (NEGATIVE) Urine Nitrite NEGATIVE (NEGATIVE) Urine Bilirubin NEGATIVE (NEGATIVE) Urine Urobilinogen 0.2 (NORMAL) (NORMAL) E.U./dL Ur Leukocyte Esterase NEGATIVE (NEGATIVE) Ur Microscopic Review NOT INDICATED Urine Culture Comments NOT INDICATED - Diagnostic Imaging Diagnostic Imaging Results: positive: Final report reviewed Diagnostic Imaging Comments: CTA brain; Extracranial; Right and left carotids widely patnt, nosignifcant stenossi Vertebrals; Right vertebral artery; intimal thickening at origin and proximal V1 segment; Severe 75% senosis; mild 45% in proximal V2 segment at level of C6 transverse foramen . Left vertebral artery; calcificatoin at origin limits eval of stenosis; likley oereate to severe stenosis at origin; otherise cervical vertbral artery patent. Moderae ate 55% stenosis at junction of the V3, V4 segments Intracranilal; Right carotid; Moderate to sevre stenosis in proximal A1 segmnt Left carotid Severe stenosis proximal posterior deivision M2 ranch at juntion of sylvian fissure Posterior circulation; Right vertbral artery ; severe stenosis in distal V4 segment at union w/ basilar artery; PICA arises fro mid V4 segment Multiple sever stenosis thruout proximal and mid PICA Assessment/Plan - Problem List (1) Right pontine stroke Impression: presented with imbalance , fall Brain MRI with small acute ischemic infarct R paramedianlowr hemipons 6x8mm w/ no evidence of hemorrhagic tranformation perforater type infarct. Old chornic lacunar infart superior R himepons and bilat basal ganglia. most likley chronic SVID Corresponding CTA shows multiple areas of severe stenosis PICA, basilar, and MCA Started statin, ASA DAPT Discussed with [place] neurology; Recommended DAPT 3-6 mos and strongly advised neuro follow up preferably in [facility] given the severity of his stenosis (as opposed to vascular consultation) (2) Intracranial vascular stenosis Impression: Severe stenosis multiple see detail below
[2019-06-10] MEDS ORDERED: CLOPIDOGREL 75 MG TABLET PO SCH (12:00)
--- NOTE | 2019-06-10 12:36 | Discharge Plan ---
Discharge Plan Problem Reviewed?: Yes Disposition: Home, Self Care Condition: Stable Prescriptions: Aspirin [Adult Aspirin Regimen] 81 mg PO DAILY 90 Days #90 tablet. Atorvastatin [Lipitor] 80 mg PO QPM 60 Days #60 tablet Clopidogrel [Plavix] 75 mg PO DAILY #30 tablet Diet: Low Sodium Activity Restrictions: Activity as Tolerated Shower Restrictions: No Driving Restrictions: Yes (as before due to vision defect) Assistance Devices: Other (Physical therapist evaluated and found your gait at baseline) Health Concerns: Stroke: -You came to the hospital with an episode of imbalance and fall and impaired speech. An MRI confirmed you had a new small stroke in the des (posterior area of the brain) MRI also showed you had several old areas of "lacunar" strokes (small deep white matter strokes) which are usually due to high blood pressure. Imaging of the intracranial vessels showed several areas of stenosed (tight) intracranial vessels. Re; possible causes of stroke most likely intermediate accountant hypertension and intracranial stenosis, you are not diabetic, nonsmoker,on telemetry no sign of irregular heart rate (atrial fibrillation not noted), echocardiogram was unremarkable . Plan Dual antiplatelet therapy (for both stroke and the hollis of stenosis -You were started on Aspirin (81 mg daily) and Plavix 75 mg daily (2 antiplatelet agents) -Neurology recommended 3-6 mos of both agents, unless neurology recommends otherwise. Neurology follow up Neurology at [facility] recommended follow up with a neurologist given the many areas of stenosis intracranially. You have copies of the brain imaging reports, (MRI, CTA), and a CD of the imaging Hypertension control ; You are starting a low dose antihypertensive called amlodipine (5 mg daily) PCP will titrate the dose if warranted Hyperlipidemia You were already on a statin (simvastatin), but for stroke atorvastatin (lipitor) is considered a "high intensity statin" / better for stroke, so you have a new prescription for atorvastatin 80 mg daily. (stop simvastatin) If you have any signs of bleeding on Aspirin and plavix notify PCP (or come to ED if active bleeding) eg. if stools are black or tarry or maroon, come to ED Care Goals: Optimize blood pressure control Optimize cholesterol Prevent future stroke No Smoking: If you smoke, Please STOP! Call for help. Follow-up with: Lacey Broderick PA [Provider Admit Priv/Credential] - 1 Week (Patient needs referal to neurology , severe intracranial stenosis Consider outpatient PT (if balance issues (or fine motor) not significant on discharge. Statin was changed to high intensity statin, and DAPT started)
[2019-06-10 12:58] VITALS: BP 138/68
--- NOTE | 2019-06-10 16:38 | DISCHARGE SUMMARY ---
"Discharge Summary Admit Date: 06/09/19 Discharge Date: 06/10/19 Discharging Provider: SAGE Smyth Primary Care Provider: Annel Broderick Code Status: Attempt Resuscitation Condition at Discharge: Stable Discharge Disposition: 01 Home, Self Care - DIAGNOSES Admission Diagnoses: Stroke; Right lower crispin-des 6x8 mm, contract technical writer type infarct Severe intracranial stenosis old lacunar infarcts; Superior Right crispin des and bilateral basal ganglia hypertension Benign prostatic hypertrophy Discharge Diagnoses with Status of Each Condition: 1) stroke; Right lower crispin des stable, evaluated by PT and does not require SNF changed to high dose statin, DAPT started, Amlodipine added, recommend neuro follow up PCP consider outpatient physical therapy 2) Severe intracranial stenosis At risk for further stroke on DAPT, high dose statin 3) old lacunar infarcts Antihypertensive added 4) hypertension Elevated on admission Antihypertensive added 5)BPH; stable continues flomax, proscar - HPI History of Present Illness: 68 yo male presented to ED with worsening dizziness and imbalance. Symptoms started ~ 1.5 days before admission when he noted ambulatory dizziness only with movement. Not when recumbant. On day of admission afer sitting up in bed he lost his balance and fell to the side of the bed hitting back of head with no LOC. He and family noted his speech was slowr and more deliberate. No facial dysesthesia, No UE or LE weakness but overall felt week. 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 Initial Head CT with no acute findings, but presentation concerning for TIA vs stroke. MRI brain showed new Right hemipons punctate stroke (6-8 mm, ) Of note, CTA of brain showed atherosclerosis,and severe stenosis in several areas . See details below; - CONSULTS | PROCEDURES Consultations: informal discussion with [place] neurologist re: intracranial stenosis - HOSPITAL COURSE Hospital Course: Impression: 1 acute stroke Right crispin des , Brain MRI with small acute ischemic infarct R hemipons 6x8mm w/ no evidence of hemorrhagic tranformation perforater type infarct. Imaging also noted old chronic lacunar infart superior R crispin dse and bilat basal ganglia. most likley chronic Small vessel ischemic disease Corresponding CTA shows multiple areas of severe stenosis PICA, basilar, and MCA as detailed above Was on simvastatin, changed to high intensity statin DAPT with ASA, Plavix x 3-6 mos pr discussion with [place] neurology Neurologist strongly advised neuro follow up preferably in city given the severity of his stenosis/ at high risk for further stroke (as opposed to vascular consultation Physical therapy evaluated patient and no skilled needs identified/ could consider outpatient PT referal (2) Intracranial vascular stenosis/ multiple areas of severe stenosis As above started DAPT 3-6 months Neurology recommended outpatient neurology follow up PCP would need to refer Patient has copies of all imaging study reports as well as CD 3) Hypertension Patient not previously on antihypertensive 207/80 on presentation 150's over 60-70 on subsequent day Starting low dose amlodipine Outpatient follow up 4) Hyperlipidemia As above Changed simvastatin (home Rx) to Atorvastatin 80 /high intensity statin - ALLERGIES Allergies/Adverse Reactions: Allergies Allergy/AdvReac Type Severity Reaction Status Date / Time No Known Drug Allergies Allergy Verified 06/09/19 15:43 - MEDICATIONS Home Medications: Ambulatory Orders Medication Instructions Recorded Confirmed Finasteride [Proscar] 5 mg PO DAILY #30 tablet 01/20/19 06/10/19 Tamsulosin HCl [Flomax] 0.4 mg PO QPM #30 cap.er.24h 01/20/19 06/10/19 Aspirin [Adult Aspirin Regimen] 81 mg PO DAILY 90 Days #90 06/10/19 tablet. Atorvastatin [Lipitor] 80 mg PO QPM 60 Days #60 tablet 06/10/19 Clopidogrel [Plavix] 75 mg PO DAILY #30 tablet 06/10/19 Simvastatin 40 mg PO DAILY 06/10/19 06/10/19 amLODIPine [Norvasc] 5 mg PO DAILY #30 tablet 06/10/19 - PHYSICAL EXAM AT DISCHARGE General Appearance: positive: No acute distress, Other (very pleasant older gentleman sitting up in chair, accent, articulate, I do not note wordfinding difficulty nor slowing) Eyes Bilateral: positive: Normal inspection, EOMI (eye movements track evenly, + facial symmetry, ), Other (cannot assess visual acuity given blindness) Respiratory: positive: Chest non-tender, No respiratory distress, Breath sounds nml Cardiovascular: positive: Regular rate & rhythm. negative: No murmur, Systolic murmur (1-2 / 6 systolic murmur loudest) Abdomen: positive: Nml bowel sounds, No distention. negative: Tenderness Back: positive: Nml inspection Skin: positive: Warm, Dry. negative: Diaphoresis, Pallor Neurologic/Psychiatric: positive: Oriented x3, Motor nml (5/5 strength UE machine tech, elbow flexion extension, shoulder abduction/adduction, knee ext/flexion, plantar dorsiflexion and hip flexion all 5/5), Other (articulate) - LABS Result Diagrams: 06/10/19 05:21 06/10/19 05:21 - DIAGNOSTIC IMAGING Diagnostic Imaging Results: Final report reviewed Diagnostic Imaging Results Comments: 06/09/2019 MRI brain; region of DWI signal hyperintensity Right paramedian aubrey des 6x8mm representing restricted diffusion. consistent with acute ischemic infarct/ prforator type infarct Old chronic lacunar infarct superior R hemipons. Also old chronic lacunar infarcts bilateral basal ganglia No associated hemosiderin staining 06/09/2019 CTA brain; CTA Extracranial; Right and left carotids widely patent, nosignifcant stenossi Vertebrals; -Right vertebral artery; intimal thickening at origin and proximal V1 segment; Severe 75% stenosis; mild 45% in proximal V2 segment at level of C6 transverse foramen . -Left vertebral artery; calcification at origin limits eval of stenosis; dialloley modereate to severe stenosis at origin; otherise cervical vertbral artery patent. Moderate 55% stenosis at junction of the V3, V4 segments CTA Intracranial Circulation Right carotid; Moderate to sevre stenosis in proximal A1 segmnt Left carotid Severe stenosis proximal posterior deivision M2 ranch at juntion of sylvian fissure Posterior circulation; Right vertebral artery ; severe stenosis in distal V4 segment at union w/ basilar artery; PICA arises from mid V4 segment Multiple severe stenosis thruout proximal and mid PICA -Left vertebral artery w/ moderate stenosis at junction of V3, V4 segment as pierces dura. 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 Moderate and severe stenosis in P1, P2, P3 - TIME SPENT Time Spent in Discharge (Minutes): 50 (over 30 minuntes spent on discharge, examining patint, educating patient and daughter, coordinating f/u , discussion with neurolgy)"
== END 2019-06-10 14:56 | disposition home or self-care (01) ==
LOC: EDUNIT# → ED 15:36 → MS2 18:27
PROVIDERS: ADMIT Specialist; ATTEND Nurse Practitioner
DX: I63.9 Cerebral infarction, unspecified (principal); R29.701 NIHSS score 1; R42 Dizziness and giddiness; R47.89 Other speech disturbances; R29.810 Facial weakness; R26.89 Other abnormalities of gait and mobility; R49.0 Dysphonia; I67.2 Cerebral atherosclerosis; I65.03 Occlusion and stenosis of bilateral vertebral arteries; I65.23 Occlusion and stenosis of bilateral carotid arteries; I66.3 Occlusion and stenosis of cerebellar arteries; I65.1 Occlusion and stenosis of basilar artery; I10 Essential (primary) hypertension; E78.5 Hyperlipidemia, unspecified; N40.1 Benign prostatic hyperplasia with lower urinary tract symptoms; R33.8 Other retention of urine; H47.013 Ischemic optic neuropathy, bilateral; H54.7 Unspecified visual loss; Z79.899 Other long term (current) drug therapy; Z91.81 History of falling; Z82.3 Family history of stroke; Z87.898 Personal history of other specified conditions
CPT/HCPCS: 36415; 70496; 70498; 70551; 80053; 80061; 81003; 83036; 83690; 83721; 83735; 85025; 85651; 93005; 93306; 96374; 97161; 99284; 99285; A9270; G0378; Q9967; 81001; 87086